=== PATIENT | male | born 1965 | race American Indian/Alaskan Native ===

== ENCOUNTER 2019-09-27 02:47 | Emergency (ER) | payer MEDICARE ==
[2019-09-27 03:59] LABS: Basophils # (Auto) 0.1 K/mm3 (0.0-0.1); Basophils % (Auto) 1.1 % (0.0-1.8); Eosinophils # (Auto) 0.2 K/mm3 (0.0-0.4); Eosinophils % (Auto) 2.2 % (0.0-4.3); Hematocrit 28.2 % (35.5-45.6); Hemoglobin 8.8 gm/dl (11.8-15.2); Lymphocytes # (Auto) 1.1 K/mm3 (1.2-5.4); Lymphocytes % (Auto) 11.7 % (13.4-35.0); Mean Corpuscular HGB Conc 31 % (32-34); Mean Corpuscular Volume 89 fl (84-94); Monocytes # (Auto) 0.6 K/mm3 (0.0-0.8); Monocytes % (Auto) 6.2 % (0.0-7.3); Platelet Count 380 K/mm3 (140-440); Red Blood Count 3.16 M/mm3 (3.65-5.03); Red Cell Distribution Width 15.8 % (13.2-15.2)
--- NOTE | 2019-09-27 04:03 | Emergency Department Report ---
<BERKLEY GALVEZ - Last Filed: 09/27/19 06:07> ED General Adult HPI - General Chief complaint: Hypoglycemia Stated complaint: LOW SUGAR Time Seen by Provider: 09/27/19 03:43 Source: EMS Mode of arrival: Stretcher Limitations: Altered Mental Status - History of Present Illness Initial comments: 53-year-old male with multiple medical problems who is a custodial resident presents with complaint of being found on the floor at custodial. Patient had a blood glucose which was 45 and was given 2 injections of glucagon. Linsey ent also had D5 hung by EMS. Patient complains of headache. Patient is on Tuesday dialysis. Patient denies any blood in his stool or any hematemesis. Patient denies any chest pain or shortness of breath. Patient states that he may have passed out as well. - Related Data Allergies Allergy/AdvReac Type Severity Reaction Status Date / Time No Known Allergies Allergy Verified 09/27/19 03:07 ED Review of Systems Constitutional: denies: chills, fever Eyes: denies: eye pain, eye discharge, vision change ENT: denies: ear pain, throat pain Respiratory: denies: cough, shortness of breath, wheezing Cardiovascular: denies: chest pain, palpitations Endocrine: no symptoms reported Gastrointestinal: denies: abdominal pain, nausea, diarrhea Genitourinary: denies: urgency, dysuria Musculoskeletal: denies: back pain, joint swelling, arthralgia Skin: denies: rash, lesions Neurological: weakness Psychiatric: denies: anxiety, depression Hematological/Lymphatic: denies: easy bleeding, easy bruising ED Past Medical Hx - Past Medical History Previous Medical History?: Yes Hx Hypertension: Yes Hx CVA: No Hx Heart Attack/AMI: No Hx Congestive Heart Failure: Yes Hx Diabetes: Yes Hx Deep Vein Thrombosis: No Hx Pulmonary Embolism: No Hx GERD: Yes Hx Liver Disease: No Hx Renal Disease: Yes (ESRD on HD 08/18/13) Hx Sickle Cell Disease: No Hx Arthritis: No Hx Headaches / Migraines: No Hx Seizures: No Hx Kidney Stones: No Hx Psychiatric Treatment: No Hx Asthma: No Hx COPD: Yes Hx Tuberculosis: No Hx Dementia: No Hx HIV: No - Surgical History Past Surgical History?: Yes Additional Surgical History: Dialysis access to LUE. Keira BKA - Social History Smoking Status: Never Smoker Substance Use Type: None ED Physical Exam - General Limitations: Altered Mental Status General appearance: alert, other (uncomfortable) - Head Head exam: Present: atraumatic, normocephalic - Eye Eye exam: Present: normal appearance - ENT ENT exam: Present: mucous membranes moist - Neck Neck exam: Present: normal inspection, other (mild tenderness in c4 region) - Respiratory Respiratory exam: Present: normal lung sounds bilaterally. Absent: respiratory distress - Cardiovascular Cardiovascular Exam: Present: regular rate, normal rhythm. Absent: systolic murmur, diastolic murmur, rubs, gallop - GI/Abdominal GI/Abdominal exam: Present: soft, normal bowel sounds - Rectal Rectal exam: Present: heme (-) stool, other (brown stool) - Extremities Exam Extremities exam: Present: normal inspection, other (left BKA ) - Back Exam Back exam: Present: normal inspection - Neurological Exam Neurological exam: Present: alert, oriented X3 - Psychiatric Psychiatric exam: Present: normal affect, normal mood - Skin Skin exam: Present: warm, dry, intact, normal color. Absent: rash ED Medical Decision Making - Lab Data Result diagrams: 09/27/19 03:36 09/27/19 03:36 - Medical Decision Making Patient had received 2 injections of glucagon as well as D5 through IV fluids patient's blood glucose had initially increased but now has downgraded again to 61. Radiology discussed the case with me and has some concerns that there may be an acute injury to the C-spine but also states that this may be chronic and the thought is that this needs further evaluation with MRI. Patient still pending an MRI. Patient case discussed with the hospitalist as the patient will still need to be admitted with this recurrent hypoglycemia. Patient has an anemia present with a hemoglobin of 8.8 however his guaiac exam is negative. - Differential Diagnosis Dehydration; Electrolyte Abnormality; Intracranial Bleed ED Disposition Clinical Impression: Hypoglycemia, ESRD (end stage renal disease), Discitis of cervical region Disposition: DC/TX-70 ANOTHER TYPE HLTHCARE Condition: Critical <LEIGH FAUSTIN - Last Filed: 09/27/19 15:23> ED Course - Reevaluation(s) Reevaluation #1: 09/27/19 09:29 repeat glucose less than 40. 2 amps of d50 ordered. q hourly accu-check requested 09/27/19 09:57 mri images reviewed. 09/27/19 10:11 blood cultures ordered given discitis vs osteo reading. 09/27/19 13:00 pt continues to have recurrent hypoglycemia requiring repeated d50 doses. 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 - Consultations Consultation #1: 09/27/19 09:57 Dr Padilla with ortho called. he is currently in the OR and will call back. Dispo pending consultation 09/27/19 10:09 Dr Padilla responded. stating he does not perform c spine surgery and there isn't any neurosurgical coverage available. I will contact manasa 09/27/19 10:18 manasa called, med surg saturation. trauma md did not speak to me since likely medical admission. awaiting call back from DR Goodman neurosurgeon. 09/27/19 10:49 case d/w Dr Swann neurosurgeon, pt does not need neurosurgeon at this time. rec hospitalist to admit and he can consult, awaiting hosptialist callback Dr Avalos called to check on pt. provided an update regarding diagnosis and transfer attempt. 09/27/19 11:16 awaiting [place] hospitalist call back but they are on saturation and rec trying other facilities. 09/27/19 11:58 call placed to [facility] awaiting Dr Spivey spine surgeon call back. 09/27/19 12:35 case d/w dR Turcios as well as with [facility] was willing to accept patient pending spinal physician approval . Still awaiting spine surgeon call 09/27/19 13:20 received call back from [facility], pt accepted at this time after consultation with Dr Larios 09/27/19 14:03 recieved call back form [facility] that since pt is needing q 1hr accuchecks, he will need ICU admission. they do not have any icu beds but pt will be placed on list for one. also if pt glucose stabilizes we can call back for a floor bed again. I will need to sign out this plan to oncoming provider Dr jaime ED Medical Decision Making - Lab Data Result diagrams: 09/27/19 03:36 09/27/19 03:36 Lab Results 09/27/19 09/27/19 09/27/19 Range/Units 03:21 03:36 03:36 WBC 9.6 (4.5-11.0) K/mm3 RBC 3.16 L (3.65-5.03) M/mm3 Hgb 8.8 L (11.8-15.2) gm/dl Hct 28.2 L (35.5-45.6) % MCV 89 (84-94) fl MCH 28 (28-32) pg MCHC 31 L (32-34) % RDW 15.8 H (13.2-15.2) % Plt Count 380 (140-440) K/mm3 Lymph % (Auto) 11.7 L (13.4-35.0) % Ulster % (Auto) 6.2 (0.0-7.3) % Eos % (Auto) 2.2 (0.0-4.3) % Baso % (Auto) 1.1 (0.0-1.8) % Lymph # 1.1 L (1.2-5.4) K/mm3 Ulster # 0.6 (0.0-0.8) K/mm3 Eos # 0.2 (0.0-0.4) K/mm3 Baso # 0.1 (0.0-0.1) K/mm3 Seg Neutrophils % 78.8 H (40.0-70.0) % Seg Neutrophils # 7.6 (1.8-7.7) K/mm3 Sodium 145 (137-145) mmol/L Potassium 4.5 (3.6-5.0) mmol/L Chloride 103.8 (98-107) mmol/L Carbon Dioxide 25 (22-30) mmol/L Anion Gap 21 mmol/L BUN 41 H (9-20) mg/dL Creatinine 7.6 H (0.8-1.5) mg/dL Estimated GFR 9 ml/min BUN/Creatinine Ratio 5 % Glucose 83 (75-100) mg/dL POC Glucose 107 H (70-105) Calcium 8.8 (8.4-10.2) mg/dL Total Bilirubin 0.20 (0.1-1.2) mg/dL AST 18 (5-40) units/L ALT 18 (7-56) units/L Alkaline Phosphatase 95 (35-129) units/L Total Protein 7.8 (6.3-8.2) g/dL Albumin 3.2 L (3.9-5) g/dL Albumin/Globulin Ratio 0.7 % 09/27/19 09/27/19 09/27/19 Range/Units 05:20 06:29 09:37 WBC (4.5-11.0) K/mm3 RBC (3.65-5.03) M/mm3 Hgb (11.8-15.2) gm/dl Hct (35.5-45.6) % MCV (84-94) fl MCH (28-32) pg MCHC (32-34) % RDW (13.2-15.2) % Plt Count (140-440) K/mm3 Lymph % (Auto) (13.4-35.0) % Ulster % (Auto) (0.0-7.3) % Eos % (Auto) (0.0-4.3) % Baso % (Auto) (0.0-1.8) % Lymph # (1.2-5.4) K/mm3 Ulster # (0.0-0.8) K/mm3 Eos # (0.0-0.4) K/mm3 Baso # (0.0-0.1) K/mm3 Seg Neutrophils % (40.0-70.0) % Seg Neutrophils # (1.8-7.7) K/mm3 Sodium (137-145) mmol/L Potassium (3.6-5.0) mmol/L Chloride (98-107) mmol/L Carbon Dioxide (22-30) mmol/L Anion Gap mmol/L BUN (9-20) mg/dL Creatinine (0.8-1.5) mg/dL Estimated GFR ml/min BUN/Creatinine Ratio % Glucose (75-100) mg/dL POC Glucose 65 L 107 H < 40 L (70-105) Calcium (8.4-10.2) mg/dL Total Bilirubin (0.1-1.2) mg/dL AST (5-40) units/L ALT (7-56) units/L Alkaline Phosphatase (35-129) units/L Total Protein (6.3-8.2) g/dL Albumin (3.9-5) g/dL Albumin/Globulin Ratio % 09/27/19 09/27/19 09/27/19 Range/Units 10:29 11:52 12:47 WBC (4.5-11.0) K/mm3 RBC (3.65-5.03) M/mm3 Hgb (11.8-15.2) gm/dl Hct (35.5-45.6) % MCV (84-94) fl MCH (28-32) pg MCHC (32-34) % RDW (13.2-15.2) % Plt Count (140-440) K/mm3 Lymph % (Auto) (13.4-35.0) % Ulster % (Auto) (0.0-7.3) % Eos % (Auto) (0.0-4.3) % Baso % (Auto) (0.0-1.8) % Lymph # (1.2-5.4) K/mm3 Ulster # (0.0-0.8) K/mm3 Eos # (0.0-0.4) K/mm3 Baso # (0.0-0.1) K/mm3 Seg Neutrophils % (40.0-70.0) % Seg Neutrophils # (1.8-7.7) K/mm3 Sodium (137-145) mmol/L Potassium (3.6-5.0) mmol/L Chloride (98-107) mmol/L Carbon Dioxide (22-30) mmol/L Anion Gap mmol/L BUN (9-20) mg/dL Creatinine (0.8-1.5) mg/dL Estimated GFR ml/min BUN/Creatinine Ratio % Glucose (75-100) mg/dL POC Glucose 203 H 85 55 L (70-105) Calcium (8.4-10.2) mg/dL Total Bilirubin (0.1-1.2) mg/dL AST (5-40) units/L ALT (7-56) units/L Alkaline Phosphatase (35-129) units/L Total Protein (6.3-8.2) g/dL Albumin (3.9-5) g/dL Albumin/Globulin Ratio % 09/27/ Range/Units 13:47 WBC (4.5-11.0) K/mm3 RBC (3.65-5.03) M/mm3 Hgb (11.8-15.2) gm/dl Hct (35.5-45.6) % MCV (84-94) fl MCH (28-32) pg MCHC (32-34) % RDW (13.2-15.2) % Plt Count (140-440) K/mm3 Lymph % (Auto) (13.4-35.0) % Ulster % (Auto) (0.0-7.3) % Eos % (Auto) (0.0-4.3) % Baso % (Auto) (0.0-1.8) % Lymph # (1.2-5.4) K/mm3 Ulster # (0.0-0.8) K/mm3 Eos # (0.0-0.4) K/mm3 Baso # (0.0-0.1) K/mm3 Seg Neutrophils % (40.0-70.0) % Seg Neutrophils # (1.8-7.7) K/mm3 Sodium (137-145) mmol/L Potassium (3.6-5.0) mmol/L Chloride (98-107) mmol/L Carbon Dioxide (22-30) mmol/L Anion Gap mmol/L BUN (9-20) mg/dL Creatinine (0.8-1.5) mg/dL Estimated GFR ml/min BUN/Creatinine Ratio % Glucose (75-100) mg/dL POC Glucose 132 H (70-105) Calcium (8.4-10.2) mg/dL Total Bilirubin (0.1-1.2) mg/dL AST (5-40) units/L ALT (7-56) units/L Alkaline Phosphatase (35-129) units/L Total Protein (6.3-8.2) g/dL Albumin (3.9-5) g/dL Albumin/Globulin Ratio % - Radiology Data Radiology results: report reviewed CT head/brain wo con INDICATION / CLINICAL INFORMATION: fall. TECHNIQUE: Axial CT imaging of the brain was obtained without contrast. Coronal and sagittal reformatted imaging obtained and reviewed. All CT scans at this location are performed using CT dose reduction for ALARA by means of automated exposure control. COMPARISON: Prior head CT, 09/09/2019 FINDINGS: No intracranial mass, hemorrhage, or midline shift is noted. There is old infarct in the right temporal region and insula again noted not appreciably changed. No acute infarct noted on today's exam. The ventricular system and basilar cisterns are unremark able. Mild/moderate cerebral atrophy noted. Paranasal sinuses are grossly well aerated and clear. No calvarial fracture noted. IMPRESSION: 1. No acute intracranial abnormality. 2. 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 CT cervical spine wo con INDICATION / CLINICAL INFORMATION: neck pain. Patient fell TECHNIQUE: Axial CT imaging of the cervical spine was obtained without contrast. Coronal and sagittal reformatted imaging obtained and reviewed. All CT scans at this location are performed using CT dose reduction for ALARA by means of automated exposure control. COMPARISON: None available. FINDINGS: The cervical spine is markedly abnormal. C1-C2 alignment is maintained. No fracture of C1-C2 is noted.There is significant left lateral rotary subluxation of C2 with respect to C3. C3-There is compression type deformity of the C3 vertebral body with horizontal lucency through the vertebral body. There is slight retropulsion of the inferior fracture fragment and slight anterior extrusion of additional fracture fragment. There is significant loss of vertebral body height. There is slight lateral displacement of fracture fragments to the left as well. The overall appearance is more suggestive of chronic fracture posttraumatic deformity but it would be difficult to exclude acute fracture given the appearance. C4 and C5 demonstrate complete osseous fusion. There is significant degenerative disc disease at C5-C6. IMPRESSION: 1. Marked deformity of C3 vertebral body with evidence of multiple fracture fragments and slight retropulsion . I suspect this is old posttraumatic deformity. However, it would be difficult to exclude an acute cervical spine fracture component. I am told there is no known history of cervical spine trauma. 2. There is significant left lateral rotary subluxation of C2 on C3. 3. Complete osseous fusion of C4-C5. 4. MRI is strongly suggested as it would be very difficult to exclude acute fracture of the cervical spine in this patient, especially without any known history of cervical injury. 5. This case was discussed with Dr. 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 Blood cultures taken given the findings of dis citis/osteomyelitis on MRI. Patient does not have any gross neurologic findings. Patient is in a c-collar. No signs of sepsis at this time. Patient is a dialysis patient and is due for dialysis today however, no signs of Lyme overload or hyperkalemia. Patient has been accepted to [facility] to be admitted to the hospitalist service with neurosurgical coverage. Critical Care Time: Yes Critical care time in (mins) excluding proc time.: 35 ED Disposition Is pt being admited?: No Does the pt Need Aspirin: No Time of Disposition: 13:54 (pt accepted to [facility]) <МАРИНА MATHEWS III - Last Filed: 09/27/19 17:28> ED Review of Systems ROS: Stated complaint: LOW SUGAR Other details as noted in HPI ED Physical Exam - General Limitations: No Limitations General appearance: alert, in no apparent distress - Head Head exam: Present: atraumatic, normocephalic - Eye Eye exam: Present: normal appearance, PERRL Pupils: Present: normal accommodation - ENT ENT exam: Present: mucous membranes moist - Neck Neck exam: Present: normal inspection - Respiratory Respiratory exam: Present: normal lung sounds bilaterally. Absent: respiratory distress - Cardiovascular Cardiovascular Exam: Present: regular rate, normal rhythm. Absent: systolic murmur, diastolic murmur, rubs, gallop - GI/Abdominal GI/Abdominal exam: Present: soft, normal bowel sounds - Rectal Rectal exam: Present: deferred - Extremities Exam Extremities exam: Present: full ROM, other (right below the knee amputation. Full range of motion with lower extremities. Full range of motion with upper extremities). Absent: tenderness - Back Exam Back exam: Present: normal inspection, full ROM - Neurological Exam Neurological exam: Present: alert, oriented X3 - Expanded Neurological Exam Expanded Patient oriented to: Present: person, place, time Speech: Present: fluid speech Motor strength exam: RUE: 5, LUE: 5, RLE: 5, LLE: 5 Best Eye Response ([place]): (4) open spontaneously Best Motor Response (Espinoza): (6) obeys commands Best Verbal Response ([place]): (5) oriented Espinoza Total: 15 - Psychiatric Psychiatric exam: Present: normal affect, normal mood - Skin Skin exam: Present: warm, dry, intact, normal color. Absent: rash ED Course Vital Signs 09/27/19 09/27/19 09/27/19 03:04 03:07 03:15 Temperature 97.0 F L Pulse Rate 76 81 74 Respiratory 13 16 12 Rate Blood Pressure Blood Pressure 144/74 [Left] O2 Sat by Pulse 98 99 98 Oximetry 09/27/19 09/27/19 09/27/19 03:30 03:45 04:25 Temperature Pulse Rate 75 74 75 Respiratory 11 L 11 L 10 L Rate Blood Pressure 147/89 151/87 154/88 Blood Pressure [Left] O2 Sat by Pulse 99 99 100 Oximetry 09/27/19 09/27/19 09/27/19 04:30 04:45 05:00 Temperature Pulse Rate 73 74 71 Respiratory 10 L 11 L 12 Rate Blood Pressure 144/88 144/88 130/81 Blood Pressure [Left] O2 Sat by Pulse 100 100 98 Oximetry 09/27/19 09/27/19 09/27/19 05:15 05:30 05:45 Temperature Pulse Rate 73 73 73 Respiratory 12 11 L 13 Rate Blood Pressure 130/81 155/87 161/93 Blood Pressure [Left] O2 Sat by Pulse 99 100 100 Oximetry 09/27/19 09/27/19 09/27/19 06:00 06:15 06:30 Temperature Pulse Rate 75 75 73 Respiratory 11 L 14 10 L Rate Blood Pressure 162/86 147/85 142/78 Blood Pressure [Left] O2 Sat by Pulse 100 100 100 Oximetry 09/27/19 09/27/19 09/27/19 06:45 09:57 12:51 Temperature Pulse Rate 74 71 74 Respiratory 11 L 12 12 Rate Blood Pressure 141/77 Blood Pressure 131/71 133/68 [Left] O2 Sat by Pulse 100 100 Oximetry 09/27/19 15:57 Temperature Pulse Rate 78 Respiratory 15 Rate Blood Pressure Blood Pressure 153/84 [Left] O2 Sat by Pulse 100 Oximetry - Reevaluation(s) Reevaluation #2: Patient signed out to me from Dr. Rojas to monitor the patient's blood sugars. Patient is awaiting transport to [facility] main [place]. Patient has been accepted but since his glucose is fluctuating we are waiting on an ICU bed. But [facility] states that once the blood sugar stabilizes the patient go to a floor bed. 09/27/19 15:23 Reevaluation #3: Patient's blood sugar has stabilized. Patient tolerating by mouth intake. Patient has not had another hypoglycemic episode. [facility] updated with information. 09/27/19 17:24 ED Medical Decision Making - Lab Data Result diagrams: 09/27/19 03:36 09/27/19 03:36 Critical Care Time: Yes Critical care time in (mins) excluding proc time.: 80 Critical care attestation.: If time is entered above; I have spent that time in minutes in the direct care of this critically ill patient, excluding procedure time. Critical Care Time: 80 minutes ED Disposition Is pt being admited?: No Does the pt Need Aspirin: No
[2019-09-27 04:12] LABS: Albumin 3.2 g/dL (3.9-5); Calcium 8.8 mg/dL (8.4-10.2)
--- NOTE | 2019-09-27 04:50 | Cat Scan Report ---
CT head/brain wo con INDICATION / CLINICAL INFORMATION: fall. TECHNIQUE: Axial CT imaging of the brain was obtained without contrast. Coronal and sagittal reformatted imaging obtained and reviewed. All CT scans at this location are performed using CT dose reduction for ALAR A by means of automated exposure control. COMPARISON: Prior head CT, 09/09/2019 FINDINGS: No intracranial mass, hemorrhage, or midline shift is noted. There is old infarct in the right tempor al region and insula again noted not appreciably changed. No acute infarct noted on today's exam. Th e ventricular system and basilar cisterns are unremarkable. Mild/moderate cerebral atrophy noted. Paranasal sinuses are grossly well aerated and clear. No calvarial fracture noted. IMPRESSION: 1. No acute intracranial abnormality. 2. 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 Signer Name: Leann Flores MD Signed: 09/27/2019 4:45 AM Workstation Name: [id number]
--- NOTE | 2019-09-27 05:47 | Cat Scan Report ---
CT cervical spine wo con INDICATION / CLINICAL INFORMATION: neck pain. Patient fell TECHNIQUE: Axial CT imaging of the cervical spine was obtained without contrast. Coronal and sagittal reformatte d imaging obtained and reviewed. All CT scans at this location are performed using CT dose reduction for ALARA by means of automated exposure control. COMPARISON: None available. FINDINGS: The cervical spine is markedly abnormal. C1-C2 alignment is maintained. No fracture of C1-C2 is noted.There is significant left lateral rotary subluxation of C2 with respect to C3. C3-There is compression type deformity of the C3 vertebral body with horizontal lucency through the v ertebral body. There is slight retropulsion of the inferior fracture fragment and slight anterior ext rusion of additional fracture fragment. There is significant loss of vertebral body height. There is slight lateral displacement of fracture fragments to the left as well. The overall appearance is more suggestive of chronic fracture posttraumatic deformity but it would be difficult to exclude acute fr acture given the appearance. C4 and C5 demonstrate complete osseous fusion. There is significant degenerative disc disease at C5-C6. IMPRESSION: 1. Marked deformity of C3 vertebral body with evidence of multiple fracture fragments and slight retr opulsion . I suspect this is old posttraumatic deformity. However, it would be difficult to exclude a n acute cervical spine fracture component. I am told there is no known history of cervical spine trau ma. 2. There is significant left lateral rotary subluxation of C2 on C3. 3. Complete osseous fusion of C4-C5. 4. MRI is strongly suggested as it would be very difficult to exclude acute fracture of the cervical spine in this patient, especially without any known history of cervical injury. 5. This case was discussed with Dr. 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
[2019-09-27] MEDS ORDERED: HYDROmorphone 1 MG/1 ML INJ IV ONE ×2 (07:20→12:36)
[2019-09-27] MEDS ORDERED: ONDANSETRON 4 MG/2 ML INJ IV ONE (07:20)
[2019-09-27] MEDS ORDERED: DEXTROSE 50% IN WATER (25GM) 50 ML VIAL IV ONE (09:29)
[2019-09-27] MEDS ORDERED: DEXTROSE 50% IN WATER (25GM) 50 ML SYRINGE IV ONE ×3 (09:30→12:39)
--- NOTE | 2019-09-27 09:33 | Magnetic Resonance Report ---
MRI CERVICAL SPINE WITHOUT CONTRAST INDICATION / CLINICAL INFORMATION: neck pain. TECHNIQUE: Multisequence, multiplanar images of the cervical spine were obtained. COMPARISON: The study is compared to the earlier CT cervical spine of 09/27/2019. FINDINGS: The findings correlate with the earlier CT demonstrating marked erosive changes involving the C3 and C4 vertebral bodies, greater on the left. Additionally, there is increase STIR signal within the irre gular disc space at C3-4. Furthermore, there is prominent prevertebral soft tissue edema extending f rom C1 to T1 measuring 8-9 mm in greatest AP dimension at C3-4. The constellation of findings would b e concerning for discitis and associated osteomyelitis. Edema extends into the left pedicles and harish cular facets at the these levels. Correlation would also be needed regarding superimposed traumatic p rocess given the history.. CRANIOCERVICAL JUNCTION:No significant abnormality. ALIGNMENT: There is moderate to curvature of the upper cervical spine, convex toward the right. VERTEBRAE:There is anterior fusion or ankylosis at C5-6 with mild residual anterolisthesis. There are moderate to degenerative endplate changes at C6-7. VISUALIZED SPINAL CORD: The bony retropulsion and ligamentum flavum hypertrophy at C3-4 result in spi nal stenosis with mild deformity of the cord. However, the cervical spinal cord appears to demonstrat e appropriate signal intensity on the current exam. [id number] ANALYSIS: C2-3: The broad-based disc bulge at this level contributes to the degree of stenosis given the marked compression at C3 and C4. Additionally, there is mild to moderate left neural foraminal narrowing. C3-4: There is marked compression and erosive changes at this level as detailed above. Again, the spo ndylosis and retropulsion as well as the ligamentum flavum hypertrophy result in spinal stenosis with mild to moderate circumferential deformity of the cord. There is also notable effacement of the late ral recesses with marked left and moderate right neural foraminal narrowing, C4-5: The disc bulge effaces the ventral subarachnoid space without direct cord compression. There is moderate to right neural foraminal narrowing. C5-6: Again I, there is anterior fusion at this level with mild residual anterolisthesis. The spondyl osis effaces the ventral subarachnoid space without direct cord compression. There is mild left neura l foraminal narrowing C6-7: The spondylosis slightly flattens the ventral cord at. There is moderate to marked right and mo derate left neural foraminal narrowing. C7-T1: There is a slight disc bulge without significant stenosis. PARASPINAL SOFT TISSUES: There is prominent edema involving the prevertebral soft tissues as describe d above. ADDITIONAL FINDINGS: The posterior spondylosis at T2-3 effaces the ventral subarachnoid space with mi nimal flattening of the ventral cord. IMPRESSION: 1. There is marked compression and erosive changes at C3-4 which correlate with the earlier CT. Furth ermore, there is notable increased signal within the disc space as well as prominent prevertebral sof t tissue edema in the consultation findings would be concerning for discitis and osteomyelitis. 2. The retropulsion and ligamentum flavum hypertrophy at C3-4 results in spinal stenosis with mild to moderate circumferential deformity of the cord.. Additionally, there is marked left neural foraminal narrowing. 3. There is anterior fusion at C5-6 with mild residual anterolisthesis. 4. The spondylosis at C6-7 minimally flattens the ventral cord. There is moderate to marked right and moderate left neural foraminal narrowing. Signer Name: Jackson Siddiqi MD Signed: 09/27/2019 9:28 AM Workstation Name: [id number]
[2019-09-27] MEDS ORDERED: ACETAMINOPHEN 325 MG TAB PO ONE (15:49)
[2019-09-27] MEDS ORDERED: ACETAMINOPHEN 325 MG TAB ONE (15:53)
[2019-09-27 19:39] VITALS: BP 147/83
== END 2019-09-27 19:45 | disposition other institution (70) ==
LOC: ED 02:47
DX: E11.649 Type 2 diabetes mellitus with hypoglycemia without coma (principal); I13.2 Hypertensive heart and chronic kidney disease with heart failure and with stage 5 chronic kidney disease, or end stage renal disease; I50.9 Heart failure, unspecified; E11.22 Type 2 diabetes mellitus with diabetic chronic kidney disease; N18.6 End stage renal disease; Z99.2 Dependence on renal dialysis; K21.9 Gastro-esophageal reflux disease without esophagitis; M46.42 Discitis, unspecified, cervical region; J44.9 Chronic obstructive pulmonary disease, unspecified; Z89.511 Acquired absence of right leg below knee
CPT/HCPCS: 36415; 70450; 72125; 72141; 80053; 82962; 85025; 87040; 96374; 96375; 96376; 99291; 99292; J1170; J2405

== ENCOUNTER 2019-11-24 15:36 | Inpatient (IN) | payer MEDICARE ==
--- NOTE | 2019-11-24 15:56 | Progress Note ---
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
--- NOTE | 2019-11-24 16:01 | Consultation ---
History of Present Illness History of present illness: [facility] Date of Service:11/24/2019 15:41:57 Impression: RO Acute Ischemic Stroke Comments: 54-year-old male with history of seizure disorder, end-stage renal disease on hemodialysis with getting hemodialysis treatment when he completed the treatment he lost consciousness. He has regained consciousness but continues to be confused. This could be an episode of seizure versus dialysis disequilibrium syndrome, need to rule out stroke. Metrics: Last Known Well: 11/24/2019 15:25:00 [facility] Notification Time: 11/24/2019 15:41:57 Arrival Time: 11/24/2019 15:36:00 Stamp Time: 11/24/2019 15:41:57 Time First Login Attempt: 11/24/2019 15:43:29 Video Start Time: 11/24/2019 15:43:29 Symptoms: unresponsive NIHSS Start Assessment Time: 11/24/2019 15:50:00 Patient is not a candidate for tPA. Patient was not deemed candidate for tPA thrombolytics because of No focal findings. Encephalopathy/seizure favored over stroke. unable to verify LKW or go through contraindications. unknown Baseline.. Video End Time: 11/24/2019 15:58:31 CT head showed no acute hemorrhage or acute core infarct. Advanced imaging CTA head and neck obtained. Radiologist was not called back for review of advanced imaging because pending ER Physician notified of the decision on thrombolytics management on 11/24/2019 15:55:10 Our recommendations are outlined below. Recommendations: Activate Stroke Protocol Admission/Order Set Stroke/Telemetry Floor Neuro Checks Bedside Swallow Eval DVT Prophylaxis IV Fluids, Normal Saline Head of Bed Below 30 Degrees Euglycemia and Avoid Hyperthermia (PRN Acetaminophen) Recommended Scan: MRI Head Lipid Panel to Be Obtained, if Not Done in the Last Three Months Therapies: Physical Therapy, Occupational Therapy, Speech Therapy Assessment When Applicable Dysphaghia Screen: Swallow Evaluation, Bedside NPO Until Swallow Evaluation Disposition: Follow up with Teleneurology Follow up Sign Out: Discussed with Emergency Department Provider History of Present Illness: Patient is a 54 year old Male. Patient was brought by EMS for symptoms of unresponsive 54 YO M with h/o seizure disorder, ESRD on HD, DM and HTN who was at HD when he finished dialysis, he became unresponsive. Now he has regained consciousness but is confused. Unknown baseline. CT head showed no acute hemorrhage or acute core infarct. Examination: 1A: Level of Consciousness - Alert; keenly responsive+ 0 1B: Ask Month and Age - Could Not Answer Either Question Correctly+ 2 1C: Blink Eyes & Squeeze Hands - Performs 0 Tasks+ 2 2: Test Horizontal Extraocular Movements - Normal+ 0 3: Test Visual Gagnon - No Visual Loss+ 0 4: Test Facial Palsy (Use Grimace if Obtunded) - Normal symmetry+ 0 5A: Test Left Arm Motor Drift - Drift, but doesn't hit bed+ 1 5B: Test Right Arm Motor Drift - Drift, but doesn't hit bed+ 1 6A: Test Left Leg Motor Drift - Some Effort Against [place]+ 2 6B: Test Right Leg Motor Drift - Amputation/Joint Fusion+ 0 7: Test Limb Ataxia (FNF/Heel-Ying) - No Ataxia+ 0 8: Test Sensation - Normal; No sensory loss+ 0 9: Test Language/Aphasia - Severe Aphasia: Fragmentary Expression, Inference Needed, Cannot Identify Materials+ 2 10: Test Dysarthria - Mild-Moderate Dysarthria: Slurring but can be understood+ 1 11: Test Extinction/Inattention - No abnormality+ 0 NIHSS Score:11 Patient was informed the Neurology Consult would happen via TeleHealth consult by way of interactive audio and video telecommunications and consented to receiving care in this manner. Due to the immediate potential for life-threatening deterioration due to underlying acute neurologic illness, I spent 35 minutes providing critical care. This time includes time for face to face visit via telemedicine, review of medical records, imaging studies and discussion of findings with providers, the patient and/or family. Dr Sayra Ludwig [facility] Case [id number] Medications and Allergies Allergies Allergy/AdvReac Type Severity Reaction Status Date / Time No Known Allergies Allergy Verified 09/27/19 03:07
--- NOTE | 2019-11-24 16:03 | Emergency Department Report ---
ED Neuro Deficit HPI - General Stated Complaint: AMS Time Seen by Provider: 11/24/19 15:52 Source: EMS - History of Present Illness Initial Comments: Patient is 54 years old male with history of end-stage renal disease on hemodial ysis, hypertension and congestive heart failure and right below-knee amputation.. Patient brought to the emergency room via EMS from dialysis center. EMS stated that patient became confused with decreased responsiveness after he finishes dialysis. Patient had history of stroke and seizure before however dialysis staff stated that there is no seizure activity. Stroke protocol immediately initiated and stroke telemetry neurology examining the patient who video conference. -: Sudden Presenting Symptoms: Present: Unable to Speak Clearly, Altered Mental Status History of same: Yes Place: other (dialysis Center) - Related Data Home Medications: Home Medications Medication Instructions Recorded Confirmed Last Taken Metoprolol Tartrate 75 mg PO BID 11/24/19 11/24/19 Unknown Sevelamer Carbonate [Renvela] 800 mg PO TIDWM 11/24/19 11/24/19 Unknown Warfarin [Coumadin] 1 mg PO QHS 11/24/19 11/24/19 Unknown amLODIPine [Norvasc] 10 mg PO DAILY 11/24/19 11/24/19 Unknown Allergies/Adverse Reactions: Allergies Allergy/AdvReac Type Severity Reaction Status Date / Time No Known Allergies Allergy Verified 09/27/19 03:07 ED Review of Systems ROS: Stated complaint: AMS Other details as noted in HPI Comment: All other systems reviewed and negative ED Past Medical Hx - Past Medical History Hx Hypertension: Yes Hx CVA: No Hx Heart Attack/AMI: No Hx Congestive Heart Failure: Yes Hx Diabetes: Yes Hx Deep Vein Thrombosis: No Hx Pulmonary Embolism: No Hx GERD: Yes Hx Liver Disease: No Hx Renal Disease: Yes (ESRD on HD 08/18/13) Hx Sickle Cell Disease: No Hx Arthritis: No Hx Headaches / Migraines: No Hx Seizures: No Hx Kidney Stones: No Hx Psychiatric Treatment: No Hx Asthma: No Hx COPD: Yes Hx Tuberculosis: No Hx Dementia: No Hx HIV: No - Surgical History Additional Surgical History: Dialysis access to LUE. R BKA - Social History Smoking Status: Never Smoker Substance Use Type: None - Medications Home Medications: Home Medications Medication Instructions Recorded Confirmed Last Taken Type Metoprolol Tartrate 75 mg PO BID 11/24/19 11/24/19 Unknown History Sevelamer Carbonate [Renvela] 800 mg PO TIDWM 11/24/19 11/24/19 Unknown History Warfarin [Coumadin] 1 mg PO QHS 11/24/19 11/24/19 Unknown History amLODIPine [Norvasc] 10 mg PO DAILY 11/24/19 11/24/19 Unknown History ED Neuro Physical Exam - General General appearance: alert, in no apparent distress Suspected Stroke: Yes - Head Head exam: Present: atraumatic, normocephalic, normal inspection - Eye Eye exam: Present: normal appearance - ENT ENT exam: Present: normal exam, normal orophraynx, mucous membranes moist - Neck Neck exam: Present: normal inspection, full ROM. Absent: tenderness, me ningismus, lymphadenopathy, thyromegaly - Respiratory Respiratory exam: Present: normal lung sounds bilaterally - Cardiovascular Cardiovascular Exam: Present: regular rate, normal rhythm, normal heart sounds - GI/Abdominal GI/Abdominal exam: Present: soft, normal bowel sounds. Absent: distended, tenderness, guarding, rebound, rigid - Neurological Exam Neurological exam: Present: alert, altered - NIHSS Assessment Interval: Baseline 1a. Level of Consciousness: alert/keenly responsive 1b. LOC Questions: answers no questions correctly 1c. LOC Commands: performs no tasks correctly 2. Best Gaze: normal 3. Visual: no visual loss 4. Facial Palsy: normal symmetrical movement 5b. Motor Arm Right: drift 5a. Motor Arm Left: drift 6a. Motor Leg Left: drift 6b. Motor Leg Right: amputation/joint fusion 7. Limb Ataxia: absent 8. Sensory: normal 9. Best Language: mild/moderate aphasia 10. Dysarthria: mild/moderate dysarthria 11. Extinction/Inattention: no abnormality Total Score: 9 Stroke Severity: Moderate Stroke - Psychiatric Psychiatric exam: Present: normal mood - Skin Skin exam: Present: warm, intact, normal color ED Course Vital Signs 11/24/19 11/24/19 11/24/19 16:14 16:24 16:25 Temperature Pulse Rate 95 H 95 H Respiratory 21 21 Rate Blood Pressure Blood Pressure 198/112 [Right] O2 Sat by Pulse 100 99 Oximetry 11/24/19 11/24/19 11/24/19 17:00 18:43 18:53 Temperature Pulse Rate 93 H 93 H 94 H Respiratory 13 Rate Blood Pressure Blood Pressure 189/104 [Right] O2 Sat by Pulse 100 100 100 Oximetry 11/24/19 11/24/19 11/24/19 18:55 19:00 20:00 Temperature 98.8 F Pulse Rate 94 H 93 H Respiratory 14 14 Rate Blood Pressure 197/109 196/106 Blood Pressure [Right] O2 Sat by Pulse 98 97 Oximetry 11/24/19 11/24/19 11/24/19 21:00 21:25 22:00 Temperature Pulse Rate 94 H 90 94 H Respiratory 15 12 12 Rate Blood Pressure 173/103 173/103 173/99 Blood Pressure [Right] O2 Sat by Pulse 98 98 98 Oximetry 11/24/19 11/25/19 23:00 00:01 Temperature Pulse Rate 93 H 92 H Respiratory 16 11 L Rate Blood Pressure 178/106 183/103 Blood Pressure [Right] O2 Sat by Pulse 99 100 Oximetry - Lab Data Result diagrams: 11/25/19 07:20 11/25/19 07:20 Lab Results 11/24/19 11/24/19 11/24/19 Range/Units 16:00 16:00 16:00 WBC 6.2 (4.5-11.0) K/mm3 RBC 4.33 (3.65-5.03) M/mm3 Hgb 12.1 (11.8-15.2) gm/dl Hct 37.4 (35.5-45.6) % MCV 86 (84-94) fl MCH 28 (28-32) pg MCHC 32 (32-34) % RDW 19.6 H (13.2-15.2) % Plt Count 171 (140-440) K/mm3 Lymph % (Auto) 11.3 L (13.4-35.0) % [place] % (Auto) 11.4 H (0.0-7.3) % Eos % (Auto) 1.6 (0.0-4.3) % Baso % (Auto) 0.7 (0.0-1.8) % Lymph # 0.7 L (1.2-5.4) K/mm3 Hayes # 0.7 (0.0-0.8) K/mm3 Eos # 0.1 (0.0-0.4) K/mm3 Baso # 0.0 (0.0-0.1) K/mm3 Seg Neutrophils % 75.0 H (40.0-70.0) % Seg Neutrophils # 4.6 (1.8-7.7) K/mm3 PT 13.7 (12.2-14.9) Sec. INR 1.04 (0.87-1.13) APTT 37.9 H (24.2-36.6) Sec. Thrombin Time (15.1-19.6) Sec. Sodium 135 L (137-145) mmol/L Potassium 4.8 (3.6-5.0) mmol/L Chloride 98.2 (98-107) mmol/L Carbon Dioxide 13 L (22-30) mmol/L Anion Gap 29 mmol/L BUN 49 H (9-20) mg/dL Creatinine 6.5 H (0.8-1.5) mg/dL Estimated GFR 11 ml/min BUN/Creatinine Ratio 8 % Glucose 74 L (75-100) mg/dL Calcium 8.9 (8.4-10.2) mg/dL Troponin T 0.262 H* (0.00-0.029) ng/mL Triglycerides 71 (2-149) mg/dL Cholesterol 192 (50-199) mg/dL LDL Cholesterol Direct 101 (50-130) mg/dL HDL Cholesterol 90 H (40-59) mg/dL Cholesterol/HDL Ratio 2.13 % 11/24/19 Range/Units 16:00 WBC (4.5-11.0) K/mm3 RBC (3.65-5.03) M/mm3 Hgb (11.8-15.2) gm/dl Hct (35.5-45.6) % MCV (84-94) fl MCH (28-32) pg MCHC (32-34) % RDW (13.2-15.2) % Plt Count (140-440) K/mm3 Lymph % (Auto) (13.4-35.0) % Hayes % (Auto) (0.0-7.3) % Eos % (Auto) (0.0-4.3) % Baso % (Auto) (0.0-1.8) % Lymph # (1.2-5.4) K/mm3 Hayes # (0.0-0.8) K/mm3 Eos # (0.0-0.4) K/mm3 Baso # (0.0-0.1) K/mm3 Seg Neutrophils % (40.0-70.0) % Seg Neutrophils # (1.8-7.7) K/mm3 PT (12.2-14.9) Sec. INR (0.87-1.13) APTT (24.2-36.6) Sec. Thrombin Time 16.5 (15.1-19.6) Sec. Sodium (137-145) mmol/L Potassium (3.6-5.0) mmol/L Chloride (98-107) mmol/L Carbon Dioxide (22-30) mmol/L Anion Gap mmol/L BUN (9-20) mg/dL Creatinine (0.8-1.5) mg/dL Estimated GFR ml/min BUN/Creatinine Ratio % Glucose (75-100) mg/dL Calcium (8.4-10.2) mg/dL Troponin T (0.00-0.029) ng/mL Triglycerides (2-149) mg/dL Cholesterol (50-199) mg/dL LDL Cholesterol Direct (50-130) mg/dL HDL Cholesterol (40-59) mg/dL Cholesterol/HDL Ratio % - EKG Data -: EKG Interpreted by Me - Radiology Data Radiology results: report reviewed - Medical Decision Making Patient is 54 years old male with history of end-stage renal disease on hemodialysis, hypertension and congestive heart failure and right below-knee amputation.. Patient brought to the emergency room via EMS from dialysis center. EMS stated that patient became confused with decreased responsiveness after he finishes dialysis. Patient had history of stroke and seizure before however dialysis staff stated that there is no seizure activity. Stroke protocol immediately initiated and stroke telemetry neurology examining the p atient who video conference. Patient is not a TPA candidate. Dr. Schultz, neurologist advised to order CTA brain and neck to rule out any significant thrombus. I also discussed the patient was Dr. Baeza, law researcher for dialysis after CTA. Dr. Baeza stated that he will dialyze the patient tomorrow. Critical Care Time: Yes Critical care time in (mins) excluding proc time.: 30 Critical care attestation.: If time is entered above; I have spent that time in minutes in the direct care of this critically ill patient, excluding procedure time. ED Disposition Clinical Impression: CVA (cerebral vascular accident), ESRD needing dialysis, Elevated troponin level Hypertension Qualifiers: Hypertension type: essential hypertension Qualified Code(s): I10 - Essential (primary) hypertension Disposition: DC-09 OP ADMIT IP TO THIS HOSP Is pt being admited?: No Condition: Stable
--- NOTE | 2019-11-24 16:17 | Cat Scan Report ---
CT BRAIN: 11/24/2019 INDICATION / CLINICAL INFORMATION: Unresponsiveness. COMPARISON: CT brain 09/27/2019. CT brain 09/09/2019. FINDINGS: BRAIN/INTRACRANIAL STRUCTURES: Unenhanced CT images of the brain were obtained and compared to prior exams. There has been no change. Again seen is encephalomalacia in the right middle cerebral artery distribution, consistent with prio r ischemic injury. There is no evidence of acute ischemic injury, hemorrhage, or mass. There are no abnormal extra-axial fluid collections. Atherosclerotic vascular calcifications are present in the distal internal carotid arteries and verte bral arteries. EXTRACRANIAL STRUCTURES: Unremarkable. IMPRESSION: No acute abnormality. Stable chronic and age-related changes. No CT correlate for unresponsiveness noted at this time. All CT scans at this location are performed using dose reduction to ALARA by means of automated expos ure control. Signer Name: Marco Reid MD Signed: 11/24/2019 4:12 PM Workstation Name: [id number]
[2019-11-24 16:24] LABS: Basophils % (Auto) 0.7 % (0.0-1.8); Eosinophils # (Auto) 0.1 K/mm3 (0.0-0.4); Eosinophils % (Auto) 1.6 % (0.0-4.3); Hematocrit 37.4 % (35.5-45.6); Hemoglobin 12.1 gm/dl (11.8-15.2); Lymphocytes # (Auto) 0.7 K/mm3 (1.2-5.4); Lymphocytes % (Auto) 11.3 % (13.4-35.0); Mean Corpuscular HGB Conc 32 % (32-34); Mean Corpuscular Volume 86 fl (84-94); Monocytes # (Auto) 0.7 K/mm3 (0.0-0.8); Monocytes % (Auto) 11.4 % (0.0-7.3); Platelet Count 171 K/mm3 (140-440); Red Blood Count 4.33 M/mm3 (3.65-5.03); Red Cell Distribution Width 19.6 % (13.2-15.2)
[2019-11-24 16:34] LABS: INR 1.04 (0.87-1.13)
[2019-11-24 16:42] LABS: Partial Thromboplastin Time 37.9 Sec. (24.2-36.6)
[2019-11-24 16:47] LABS: Calcium 8.9 mg/dL (8.4-10.2)
[2019-11-24 17:14] LABS: Chol/HDL Ratio 2.13 %
[2019-11-24] MEDS ORDERED: LORazepam 2 MG/ML VIAL IV ONE (18:43)
--- NOTE | 2019-11-24 19:10 | Progress Note ---
Subjective Date of service: 11/24/19 Interval history: follow up note went over all labs and noted troponin level will continue to recheck progressing neuro state Objective - Vital Sign Vital Signs - 12hr 11/24/19 11/24/19 11/24/19 16:24 16:25 18:43 Temperature Pulse Rate 95 H 93 H Respiratory 21 21 13 Rate Blood Pressure 198/112 189/104 [Right] O2 Sat by Pulse 99 100 Oximetry 11/24/19 18:55 Temperature 98.8 F Pulse Rate Respiratory Rate Blood Pressure [Right] O2 Sat by Pulse Oximetry - Laboratory Findings CBC and BMP: 11/24/19 16:00 11/24/19 16:00 Abnormal Lab Findings: Abnormal Labs 11/24/19 11/24/19 11/24/19 16:00 16:00 16:00 RDW 19.6 H Lymph % (Auto) 11.3 L [place] % (Auto) 11.4 H Lymph # 0.7 L Seg Neutrophils % 75.0 H APTT 37.9 H Sodium 135 L Carbon Dioxide 13 L BUN 49 H Creatinine 6.5 H Glucose 74 L Troponin T 0.262 H* HDL Cholesterol 90 H
--- NOTE | 2019-11-24 20:40 | Cat Scan Report ---
NECK CT ANGIOGRAM 11/24/2011 HISTORY: Altered mental status FINDINGS: Contrast-enhanced CT angiographic images of the neck were obtained. In addition to the axia l images, sagittal and coronal reformatted images were obtained. In addition, 3 plane MIP reconstruct ions were produced. NASCET like criteria were used in this evaluation. There is no evidence of significant vascular abnormality. No evidence of carotid bifurcation stenosis. Vertebral arteries are markedly hypoplastic bilaterally most likely due to developmental variation Regular significant degenerative abnormalities of the cervical spine are present. The C3 vertebral body is completely compressed (vertebra plana), unchanged when compared to a cervica l spine CT from 09/27/2019. Fusion at the C4-5 level is again noted. IMPRESSION: No evidence of carotid bifurcation stenosis. All CT scans at this location are performed using dose reduction to ALARA by means of automated expos ure control. Signer Name: Marco Reid MD Signed: 11/24/2019 8:36 PM Workstation Name: [id number]
--- NOTE | 2019-11-24 20:44 | Cat Scan Report ---
HEAD CT ANGIOGRAM 11/24/2019 HISTORY: Altered mental status FINDINGS: Contrast-enhanced CT angiographic images of the intracranial circulation were obtained. In addition to the axial images, sagittal and coronal reformatted images were obtained. In addition, 3 p ad MIP reconstructions were produced. There is no evidence of significant abnormality. Some atherosclerotic vascular calcifications are present along the course of the distal internal campos tid arteries bilaterally, with mild narrowing, no evidence of occlusion or significant stenosis. Vascular contours at the level of [place] of [place] are unremarkable. The vertebrobasilar system is relatively hypoplastic on a developmental basis. Incidental note is made of some relative thickening along the course of the infundibulum of the pitui tary gland. This is a nonspecific finding, and can be seen as normal variant, or the result of lympho cytic changes of the infundibulum. Clinical symptoms of pituitary axis dysfunction IMPRESSION: No evidence of significant vascular abnormality. No CT angiographic correlate for altered mental status. Thickening of the infundibulum of the pituitary gland of uncertain etiology. All CT scans at this location are performed using dose reduction to ALARA by means of automated expos ure control. Signer Name: Marco Reid MD Signed: 11/24/2019 8:39 PM Workstation Name: [id number]
[2019-11-24] MEDS ORDERED: DEXTROSE 50% IN WATER (25GM) 50 ML SYRINGE IV PRN (23:19)
[2019-11-24] MEDS ORDERED: ONDANSETRON 4 MG/2 ML INJ IV PRN (23:19)
[2019-11-24] MEDS ORDERED: MAGNESIUM HYDROXIDE (MOM) ORAL LIQD UDC PO PRN (23:19)
--- NOTE | 2019-11-25 04:20 | Consultation ---
HISTORY OF PRESENT ILLNESS: This 54-year-old black male seen for stroke alert. The patient brought by EMS directly to CT scan room. The patient was assessed there. History as we have it is he was at [facility] [place]. The dialysis had been finished. His vital signs were stable except for a slightly elevated blood pressure of 200/100. He was afebrile. His blood sugar was 78. EMS was contacted because the patient was not acting like himself. He was brought to the hospital, he was observed, taken to CT scan. I observed him to have a mild right-sided weakness, but some of this is compromised by the fact he has a BKA amputation of his right leg. I did look at the CT scan, he has an old right cerebral infarct, chronic in the MCA territory. There is no acute edema. There is no hemorrhage. There is no mass effect. I do not detect any new stroke of the right or left cerebral hemisphere. There is compensatory dilation of the right temporal horn of the ventricular system, indicating a substantial shrinkage of the right temporal lobe. I do not have a history as yet if he has had seizures previously. Examination further shows him to be having his eyes open. He does not respond to voice. He cannot follow simple commands. He seems very altered in his mental state and level of communication by not speaking and not being able to follow simple commands. At this point, the patient's condition; however, is to be taken back to the Emergency Room where laboratories should be obtained in further assessment, EKG, etc., to be obtained. At this point, he has clearly not had an acute hemorrhage and noticed that he has had the old stroke. I do not see anything on the CT scan to make me think he has had an acute stroke. Complications of course is that he has received heparin during his dialysis and that technically would not make him a candidate for TPA based on my review of the records, but that is also subject to the review of the ED physician and/or any other consultants that he may choose to contact. I plan to follow the patient post-admission with the hospitalist. At this point, the patient was not observed to have any seizure activity. I do not think he has meningitis. He was wearing a face mask, but I was directly told that all the inhabitants of the dialysis center were wearing facemask, presumably for influenza precaution not because he has communicable disease, but this will be further looked into. JOB# [id number] ELBERT/MERA
--- NOTE | 2019-11-25 05:45 | History and Physical Report ---
History of Present Illness Date of examination: 11/24/19 Date of admission: 11/24/19 22:13 Chief complaint: Altered mental status History of present illness: Patient is a 54-year-old male with known history of end-stage renal disease on dialysis was brought into the emergency room today with a change in mental status. Patient was said to have been confused shortly after the dialysis today. Patient also has a known history of CVA and seizure disorder. There has been no history of seizure activity today. There has been no history of fever or chills, no chest pain or shortness of breath, no nausea vomiting. Upon arrival in the emergency room patient was evaluated by the teleneurologist and the recommendation is to have patient worked up for possible CVA. Past History Past Medical History: COPD, diabetes, ESRD, heart failure, hypertension Past Surgical History: Other (Right below-knee amputation, left upper extremity fistula placement) Social history: no significant social history Family history: no significant family history Medications and Allergies Allergies Allergy/AdvReac Type Severity Reaction Status Date / Time No Known Allergies Allergy Verified 09/27/19 03:07 Home Medications Medication Instructions Recorded Confirmed Last Taken Type Metoprolol Tartrate 75 mg PO BID 11/24/19 11/24/19 Unknown History Sevelamer Carbonate [Renvela] 800 mg PO TIDWM 11/24/19 11/24/19 Unknown History Warfarin [Coumadin] 1 mg PO QHS 11/24/19 11/24/19 Unknown History amLODIPine [Norvasc] 10 mg PO DAILY 11/24/19 11/24/19 Unknown History Active Meds: Active Medications Acetaminophen (Tylenol) 650 mg PO Q4H PRN PRN Reason: Pain MILD(1-3)/Fever >100.5/FRAZIER Dextrose (D50w (25gm) Syringe) 0 ml IV Q30MIN PRN; Protocol PRN Reason: Hypoglycemia Insulin Human Lispro (Humalog) 0 unit SUB-Q ACHS JOHN; Protocol Magnesium Hydroxide (Milk Of Magnesia) 30 ml PO Q4H PRN PRN Reason: Constipation Ondansetron HCl (Zofran) 4 mg IV Q8H PRN PRN Reason: Nausea And Vomiting Sodium Chloride (Sodium Chloride Flush Syringe 10 Ml) 10 ml IV BID JOHN Sodium Chloride (Sodium Chloride Flush Syringe 10 Ml) 10 ml IV PRN PRN PRN Reason: LINE FLUSH Review of Systems Constitutional: no fever, no chills, no fatigue Cardiovascular: no chest pain, no palpitations, no dyspnea on exertion Respiratory: no cough, no congestion Gastrointestinal: no abdominal pain, no nausea, no vomiting, no diarrhea Genitourinary Male: no dysuria, no hematuria Musculoskeletal: no neck pain, no muscle cramps Integumentary: no rash, no pruritis Neurological: no weakness, no seizures, no syncope, no headaches Exam - Constitutional Vitals: Temp Pulse Resp BP Pulse Ox 98.9 F 92 H 18 172/97 98 11/25/19 01:45 11/25/19 01:45 11/25/19 01:45 11/25/19 01:45 11/25/19 01:45 General appearance: Present: no acute distress, well-nourished - EENT Eyes: Present: PERRL, EOM intact ENT: hearing intact, clear oral mucosa, dentition normal - Neck Neck: Present: supple, normal ROM - Respiratory Respiratory effort: normal Respiratory: bilateral: CTA - Cardiovascular Rhythm: regular Heart Sounds: Present: S1 & S2 - Extremities Extremities: no ischemia, No edema, Full ROM, abnormal (Right below-knee amputation) Extremity abnormal: edema Peripheral Pulses: within normal limits - Abdominal General gastrointestinal: Present: soft, non-tender, non-distended - Integumentary Integumentary: Present: clear, warm, dry - Musculoskeletal Musculoskeletal: strength equal bilaterally - Psychiatric Psychiatric: appropriate mood/affect, intact judgment & insight, cooperative - Neurologic Neurologic: CNII-XII intact, moves all extremities Results - Labs CBC & Chem 7: 11/24/19 16:00 11/24/19 16:00 Labs: Abnormal lab results 11/24/19 11/24/19 11/24/19 Range/Units 16:00 16:00 16:00 RDW 19.6 H (13.2-15.2) % Lymph % (Auto) 11.3 L (13.4-35.0) % [place] % (Auto) 11.4 H (0.0-7.3) % Lymph # 0.7 L (1.2-5.4) K/mm3 Seg Neutrophils % 75.0 H (40.0-70.0) % APTT 37.9 H (24.2-36.6) Sec. Sodium 135 L (137-145) mmol/L Carbon Dioxide 13 L (22-30) mmol/L BUN 49 H (9-20) mg/dL Creatinine 6.5 H (0.8-1.5) mg/dL Glucose 74 L (75-100) mg/dL Troponin T 0.262 H* (0.00-0.029) ng/mL HDL Cholesterol 90 H (40-59) mg/dL Assessment and Plan - Patient Problems (1) Altered mental status Current Visit: No Status: Acute Plan to address problem: Etiology is unclear we will monitor mental status closely. Patient has known history of seizure disorder and history of CVA in the past. No reported seizure activity today however will place on seizure precautions. Patient is currently being worked up for possible CVA. (2) Elevated troponin level Current Visit: Yes Status: Acute Plan to address problem: He has been no history of chest pain. EKG has been within normal limits. (3) ESRD on hemodialysis Current Visit: No Status: Acute Plan to address problem: We will place consult to nephrology for dialysis. (4) DVT prophylaxis Current Visit: No Status: Acute Plan to address problem: Patient placed on anticoagulation (5) Full code status Current Visit: Yes Status: Acute
--- NOTE | 2019-11-25 07:46 | Progress Note ---
Subjective Date of service: 11/25/19 Interval history: see my initial set of several notes for code stroke evaluation... I got hx directly from EMS who picked him up at the [facility]ail[facility] center post dialysis... he does have BK amputation right leg so know vascular disease the CT of head shows old right MCA stroke so new stroke that would be detected on MRI likely possible Will follow Thanks Objective - Vital Sign Vital Signs - 12hr 11/24/19 11/24/19 11/24/19 20:00 21:00 21:25 Temperature Pulse Rate 93 H 94 H 90 Respiratory 14 15 12 Rate Blood Pressure 196/106 173/103 173/103 O2 Sat by Pulse 97 98 98 Oximetry 11/24/19 11/24/19 11/25/19 22:00 23:00 00:01 Temperature Pulse Rate 94 H 93 H 92 H Respiratory 12 16 11 L Rate Blood Pressure 173/99 178/106 183/103 O2 Sat by Pulse 98 99 100 Oximetry 11/25/19 11/25/19 11/25/19 01:28 01:45 05:05 Temperature 98.9 F 98.1 F Pulse Rate 90 92 H 90 Respiratory 18 18 Rate Blood Pressure 172/97 168/92 O2 Sat by Pulse 98 99 Oximetry 11/25/19 07:25 Temperature 98.9 F Pulse Rate 90 Respiratory 18 Rate Blood Pressure 175/93 O2 Sat by Pulse 98 Oximetry - Laboratory Findings CBC and BMP: 11/24/19 16:00 11/24/19 16:00 Abnormal Lab Findings: Abnormal Labs 11/24/19 11/24/19 11/24/19 16:00 16:00 16:00 RDW 19.6 H Lymph % (Auto) 11.3 L Caroline % (Auto) 11.4 H Lymph # 0.7 L Seg Neutrophils % 75.0 H APTT 37.9 H Sodium 135 L Carbon Dioxide 13 L BUN 49 H Creatinine 6.5 H Glucose 74 L Troponin T 0.262 H* HDL Cholesterol 90 H
[2019-11-25] MEDS: SEVELAMER CARBONATE 800 MG TAB PO SCH ×3 (08:08→16:47)
[2019-11-25] MEDS: INSULIN LISPRO 100 UNIT/ML SUB-Q SCH ×4 (08:10→21:49)
[2019-11-25 09:06] LABS: Basophils % (Auto) 1.1 % (0.0-1.8); Eosinophils # (Auto) 0.1 K/mm3 (0.0-0.4); Eosinophils % (Auto) 3.3 % (0.0-4.3); Hematocrit 33.5 % (35.5-45.6); Hemoglobin 10.6 gm/dl (11.8-15.2); Lymphocytes % (Auto) 22.6 % (13.4-35.0); Mean Corpuscular HGB Conc 32 % (32-34); Mean Corpuscular Volume 89 fl (84-94); Monocytes # (Auto) 0.7 K/mm3 (0.0-0.8); Monocytes % (Auto) 14.9 % (0.0-7.3); Platelet Count 159 K/mm3 (140-440); Red Blood Count 3.78 M/mm3 (3.65-5.03); Red Cell Distribution Width 18.7 % (13.2-15.2)
[2019-11-25 09:16] LABS: Calcium 8.2 mg/dL (8.4-10.2)
[2019-11-25 09:50] LABS: INR 1.19 (0.87-1.13)
[2019-11-25 09:51] LABS: Partial Thromboplastin Time 38.9 Sec. (24.2-36.6)
--- NOTE | 2019-11-25 10:31 | Consultation ---
History of Present Illness - History of Present Illness Thank you for the consultation patient was evaluated today. Source of information; and [facility] current records were reviewed History of presenting illness; Patient is a 54-year-old -[place] man who's been admitted here with altered mental status during dialysis, Patient underwent neurological workup currently doing much better, he is fully alert awake oriented Patient stated that sometime during dialysis his blood pressure does drop however he has been noted to be relatively stable and has mild hypertension here He has no complaints of any headache chest pain pressure no fever or chills Past medical history significant for End-stage renal disease Anemia and end-stage renal disease Congestive heart failure Diabetes Right below-knee amputation Left upper extremity fistula Secondary hyperparathyroidism Current allergies: None Home medication present medication: Reviewed Social history, family history: Reviewed Review of systems positive for altered mental status shortly after dialysis treatment also has history of CVA and seizure disorder denied having any seizure, has been seen by neurologist All other review of systems negative Labs and x-rays: Were reviewed from the current chart Physical examination General: No acute distress HEENT: Oral mucosa moist no pharyngeal erythema no pallor or icterus no uremic order Neck: Supple no evidence of any thyromegaly trachea midline no JVD Chest: Clear to auscultation no crackles are also wheezes anteriorly Heart: Regular rate and rhythm S1-S2 heard no S3-S4 Abdomen: Soft nontender no renal bruit no CVA tenderness no suprapubic fullness no organomegaly Extremity: Minimal edema dry skin no peripheral cyanosis pulses palpable Right below-knee amputation Neurological: Alert awake follows command grossly nonfocal examination Back: Nontender thoracolumbar spine Musculoskeletal: No joint effusion noted Skin: No petechial rash/noted Assessment and plan End-stage renal disease: Given the patient did receive radiocontrast yesterday we'll arrange for hemodialysis treatment today Acidosis, should correct with hemodialysis will need follow-up labs, he is clinically asymptomatic Mild hyperkalemia to monitor and follow Altered mental status patient appears to be doing much better Secondary hyperparathyroidism: Goal hosphorus should be less than 5.5 intact PTH: Less than 600 goals were discussed with patient Malnutrition risk: High patient is to be maintained on high protein diet, probably 1.5 g protein per KG body weight Hypertension and volume: Goal systolic blood pressure currently less than 140 systolic at this time, diet plan was discussed with patient all questions were answered advised to maintain fluid restriction stated high-protein diet sodium restriction daily weight monitoring daily blood pressure monitoring was discussed with patient Dialysis access: Currently seems to be working well no acute issues Patient was adequately counseled and educated in regard to all dialysis related issues Diet plan and current labs are also discussed Counseled and educated to get further education from [employer] and related links, and upon discharge to make a follow-up appointment in the office We'll continue to follow and make recommendations from renal standpoint. If you have any questions please feel free to contact me at [phone] Thank you for the consultation. Past History Past Medical History: COPD, diabetes, ESRD, heart failure, hypertension Past Surgical History: Other (Right below-knee amputation, left upper extremity fistula placement) Social history: no significant social history Family history: no significant family history Medications and Allergies Allergies Allergy/AdvReac Type Severity Reaction Status Date / Time No Known Allergies Allergy Verified 09/27/19 03:07 Home Medications Medication Instructions Recorded Confirmed Last Taken Type Metoprolol Tartrate 75 mg PO BID 11/24/19 11/24/19 Unknown History Sevelamer Carbonate [Renvela] 800 mg PO TIDWM 11/24/19 11/24/19 Unknown History Warfarin [Coumadin] 1 mg PO QHS 11/24/19 11/24/19 Unknown History amLODIPine [Norvasc] 10 mg PO DAILY 11/24/19 11/24/19 Unknown History Active Meds: Active Medications Acetaminophen (Tylenol) 650 mg PO Q4H PRN PRN Reason: Pain MILD(1-3)/Fever >100.5/FRAZIER Amlodipine Besylate (Amlodipine) 10 mg PO DAILY REPLACED BY [facility] Dextrose (D50w (25gm) Syringe) 0 ml IV Q30MIN PRN; Protocol PRN Reason: Hypoglycemia Insulin Human Lispro (Humalog) 0 unit SUB-Q ACHS REPLACED BY [facility]; Protocol Last Admin: 11/25/19 08:10 Dose: Not Given Documented by: Magnesium Hydroxide (Milk Of Magnesia) 30 ml PO Q4H PRN PRN Reason: Constipation Metoprolol Tartrate (Metoprolol) 25 mg PO BID REPLACED BY [facility] Metoprolol Tartrate (Metoprolol) 50 mg PO BID REPLACED BY [facility] Ondansetron HCl (Zofran) 4 mg IV Q8H PRN PRN Reason: Nausea And Vomiting Sevelamer Carbonate (Renvela) 800 mg PO TIDWM REPLACED BY [facility] Last Admin: 11/25/19 08:08 Dose: 800 mg Documented by: Sodium Chloride (Sodium Chloride Flush Syringe 10 Ml) 10 ml IV BID REPLACED BY [facility] Sodium Chloride (Sodium Chloride Flush Syringe 10 Ml) 10 ml IV PRN PRN PRN Reason: LINE FLUSH Warfarin Sodium (Coumadin) 2.5 mg PO DAILY@1700 REPLACED BY [facility]; Protocol Exam - Vital Signs Vital signs: Vital Signs Pulse Pulse Ox 95 H 100 11/24/19 16:14 11/24/19 16:14 Results - Lab Results 11/25/19 07:20 11/25/19 07:20 Most recent lab results Calcium 8.2 mg/dL (8.4-10.2) L 11/25/19 07:20
[2019-11-25] MEDS: METOPROLOL TARTRATE 50 MG TAB PO SCH ×2 (11:25→21:47)
[2019-11-25] MEDS: amLODIPine 10 MG TAB PO SCH (11:25)
[2019-11-25] MEDS: METOPROLOL TARTRATE 25 MG TAB PO SCH ×2 (11:25→21:47)
[2019-11-25] MEDS: MINOXIDIL 2.5 MG TAB PO SCH (11:27)
--- NOTE | 2019-11-25 11:56 | Consultation ---
History of Present Illness - Reason for Consult Consult date: 11/25/19 - History of Present Illness HPI: 54yo male with multiple medical problems currently hospitalized for stroke work-up. Patient with ESRD on HD via left arm av fistula. We have been consulted to evaluate patient for left arm steal due to muscle wasting of the left arm. Patient denies issues with prolonged bleeding or poor clearance. ROS: as per HPI PE: NAD, A&Ox3 non-labored respirations RRR left arm av fistula with palpable thrill left hand motor/sensory intact, palpable radial pulse Plan: we will obtain arterial studies of the left arm with compression of the fistula to evaluate for steal Past History Past Medical History: COPD, diabetes, ESRD, heart failure, hypertension Past Surgical History: Other (Right below-knee amputation, left upper extremity fistula placement) Social history: no significant social history Family history: no significant family history Medications and Allergies Allergies Allergy/AdvReac Type Severity Reaction Status Date / Time No Known Allergies Allergy Verified 09/27/19 03:07 Home Medications Medication Instructions Recorded Confirmed Last Taken Type Metoprolol Tartrate 75 mg PO BID 11/24/19 11/24/19 Unknown History Sevelamer Carbonate [Renvela] 800 mg PO TIDWM 11/24/19 11/24/19 Unknown History Warfarin [Coumadin] 1 mg PO QHS 11/24/19 11/24/19 Unknown History amLODIPine [Norvasc] 10 mg PO DAILY 11/24/19 11/24/19 Unknown History Active Meds: Active Medications Acetaminophen (Tylenol) 650 mg PO Q4H PRN PRN Reason: Pain MILD(1-3)/Fever >100.5/FRAZIER Amlodipine Besylate (Amlodipine) 10 mg PO DAILY [facility] Last Admin: 11/25/19 11:25 Dose: 10 mg Documented by: Dextrose (D50w (25gm) Syringe) 0 ml IV Q30MIN PRN; Protocol PRN Reason: Hypoglycemia Insulin Human Lispro (Humalog) 0 unit SUB-Q ACHS [facility]; Protocol Last Admin: 11/25/19 08:10 Dose: Not Given Documented by: Magnesium Hydroxide (Milk Of Magnesia) 30 ml PO Q4H PRN PRN Reason: Constipation Metoprolol Tartrate (Metoprolol) 25 mg PO BID [facility] Last Admin: 11/25/19 11:25 Dose: 25 mg Documented by: Metoprolol Tartrate (Metoprolol) 50 mg PO BID [facility] Last Admin: 11/25/19 11:25 Dose: 50 mg Documented by: Minoxidil (Loniten) 2.5 mg PO QDAY [facility] Last Admin: 11/25/19 11:27 Dose: 2.5 mg Documented by: Ondansetron HCl (Zofran) 4 mg IV Q8H PRN PRN Reason: Nausea And Vomiting Sevelamer Carbonate (Renvela) 800 mg PO TIDWM [facility] Last Admin: 11/25/19 11:25 Dose: 800 mg Documented by: Sodium Chloride (Sodium Chloride Flush Syringe 10 Ml) 10 ml IV BID [facility] Last Admin: 11/25/19 11:26 Dose: 10 ml Documented by: Sodium Chloride (Sodium Chloride Flush Syringe 10 Ml) 10 ml IV PRN PRN PRN Reason: LINE FLUSH Warfarin Sodium (Coumadin) 2.5 mg PO DAILY@1700 [facility]; Protocol Exam - Constitutional Vitals: Temp Pulse Resp BP Pulse Ox 98.9 F 90 18 175/93 98 11/25/19 07:25 11/25/19 11:25 11/25/19 07:25 11/25/19 11:25 11/25/19 07:25 Results - Labs CBC & Chem 7: 11/25/19 07:20 11/25/19 07:20 Labs: Abnormal lab results 11/24/19 11/24/19 11/24/19 Range/Units 16:00 16:00 16:00 WBC (4.5-11.0) K/mm3 Hgb (11.8-15.2) gm/dl Hct (35.5-45.6) % RDW 19.6 H (13.2-15.2) % Lymph % (Auto) 11.3 L (13.4-35.0) % [place] % (Auto) 11.4 H (0.0-7.3) % Lymph # 0.7 L (1.2-5.4) K/mm3 Seg Neutrophils % 75.0 H (40.0-70.0) % PT (12.2-14.9) Sec. INR (0.87-1.13) APTT 37.9 H (24.2-36.6) Sec. Sodium 135 L (137-145) mmol/L Potassium (3.6-5.0) mmol/L Carbon Dioxide 13 L (22-30) mmol/L BUN 49 H (9-20) mg/dL Creatinine 6.5 H (0.8-1.5) mg/dL Glucose 74 L (75-100) mg/dL POC Glucose (70-105) Calcium (8.4-10.2) mg/dL Troponin T 0.262 H* (0.00-0.029) ng/mL HDL Cholesterol 90 H (40-59) mg/dL 11/25/19 11/25/19 11/25/19 Range/Units 07:20 07:20 07:20 WBC 4.4 L (4.5-11.0) K/mm3 Hgb 10.6 L (11.8-15.2) gm/dl Hct 33.5 L (35.5-45.6) % RDW 18.7 H (13.2-15.2) % Lymph % (Auto) (13.4-35.0) % [place] % (Auto) 14.9 H (0.0-7.3) % Lymph # 1.0 L (1.2-5.4) K/mm3 Seg Neutrophils % (40.0-70.0) % PT 15.3 H (12.2-14.9) Sec. INR 1.19 H (0.87-1.13) APTT 38.9 H (24.2-36.6) Sec. Sodium 136 L (137-145) mmol/L Potassium 5.3 H (3.6-5.0) mmol/L Carbon Dioxide 12 L (22-30) mmol/L BUN 63 H (9-20) mg/dL Creatinine 8.6 H (0.8-1.5) mg/dL Glucose 39 L* (75-100) mg/dL POC Glucose (70-105) Calcium 8.2 L (8.4-10.2) mg/dL Troponin T (0.00-0.029) ng/mL HDL Cholesterol (40-59) mg/dL 11/25/19 11/25/19 Range/Units 07:42 07:49 WBC (4.5-11.0) K/mm3 Hgb (11.8-15.2) gm/dl Hct (35.5-45.6) % RDW (13.2-15.2) % Lymph % (Auto) (13.4-35.0) % Ballard % (Auto) (0.0-7.3) % Lymph # (1.2-5.4) K/mm3 Seg Neutrophils % (40.0-70.0) % PT (12.2-14.9) Sec. INR (0.87-1.13) APTT (24.2-36.6) Sec. Sodium (137-145) mmol/L Potassium (3.6-5.0) mmol/L Carbon Dioxide (22-30) mmol/L BUN (9-20) mg/dL Creatinine (0.8-1.5) mg/dL Glucose (75-100) mg/dL POC Glucose 44 L 45 L (70-105) Calcium (8.4-10.2) mg/dL Troponin T (0.00-0.029) ng/mL HDL Cholesterol (40-59) mg/dL
--- NOTE | 2019-11-25 12:44 | Progress Note ---
Assessment and Plan Assessment and plan: Acute encephalopathy. Patient appears back to baseline. Unclear etiology. Neurology following. Elevated troponin. Patient denies any chest pain. Cardiology consultation. Etiology may be secondary to renal disease. ESRD. Continue hemodialysis per nephrology. Subclavian steal syndrome. Vascular surgery evaluation. History Interval history: No new issues overnight. Patient appears back to baseline mental status. Hospitalist Physical - Constitutional Vitals: Temp Pulse Resp BP Pulse Ox 98.9 F 84 18 175/102 100 11/25/19 07:25 11/25/19 12:06 11/25/19 12:06 11/25/19 12:06 11/25/19 12:06 General appearance: Present: no acute distress, well-nourished - EENT Eyes: Present: PERRL, EOM intact ENT: hearing intact, clear oral mucosa, dentition normal - Neck Neck: Present: supple, normal ROM - Respiratory Respiratory effort: normal Respiratory: bilateral: CTA - Cardiovascular Rhythm: regular Heart Sounds: Present: S1 & S2. Absent: gallop, rub - Extremities Extremities: no ischemia, No edema, Full ROM - Abdominal General gastrointestinal: soft, non-tender, non-distended, normal bowel sounds - Integumentary Integumentary: Present: clear, warm, dry - Neurologic Neurologic: CNII-XII intact, moves all extremities Results - Labs CBC & Chem 7: 11/25/19 07:20 11/25/19 07:20 Labs: Laboratory Last Values WBC 4.4 K/mm3 (4.5-11.0) L 11/25/19 07:20 RBC 3.78 M/mm3 (3.65-5.03) 11/25/19 07:20 Hgb 10.6 gm/dl (11.8-15.2) L 11/25/19 07:20 Hct 33.5 % (35.5-45.6) L 11/25/19 07:20 MCV 89 fl (84-94) 11/25/19 07:20 MCH 28 pg (28-32) 11/25/19 07:20 MCHC 32 % (32-34) 11/25/19 07:20 RDW 18.7 % (13.2-15.2) H 11/25/19 07:20 Plt Count 159 K/mm3 (140-440) 11/25/19 07:20 Lymph % (Auto) 22.6 % (13.4-35.0) 11/25/19 07:20 [place] % (Auto) 14.9 % (0.0-7.3) H 11/25/19 07:20 Eos % (Auto) 3.3 % (0.0-4.3) 11/25/19 07:20 Baso % (Auto) 1.1 % (0.0-1.8) 11/25/19 07:20 Lymph # 1.0 K/mm3 (1.2-5.4) L 11/25/19 07:20 [place] # 0.7 K/mm3 (0.0-0.8) 11/25/19 07:20 Eos # 0.1 K/mm3 (0.0-0.4) 11/25/19 07:20 Baso # 0.0 K/mm3 (0.0-0.1) 11/25/19 07:20 Seg Neutrophils % 58.1 % (40.0-70.0) 11/25/19 07:20 Seg Neutrophils # 2.6 K/mm3 (1.8-7.7) 11/25/19 07:20 PT 15.3 Sec. (12.2-14.9) H 11/25/19 07:20 INR 1.19 (0.87-1.13) H 11/25/19 07:20 APTT 38.9 Sec. (24.2-36.6) H 11/25/19 07:20 Thrombin Time 16.5 Sec. (15.1-19.6) 11/24/19 16:00 Sodium 136 mmol/L (137-145) L 11/25/19 07:20 Potassium 5.3 mmol/L (3.6-5.0) H 11/25/19 07:20 Chloride 99.6 mmol/L (98-107) 11/25/19 07:20 Carbon Dioxide 12 mmol/L (22-30) L 11/25/19 07:20 Anion Gap 30 mmol/L 11/25/19 07:20 BUN 63 mg/dL (9-20) H 11/25/19 07:20 Creatinine 8.6 mg/dL (0.8-1.5) H 11/25/19 07:20 Estimated GFR 8 ml/min 11/25/19 07:20 BUN/Creatinine Ratio 7 % 11/25/19 07:20 Glucose 39 mg/dL (75-100) L* 11/25/19 07:20 POC Glucose 118 (70-105) H 11/25/19 12:13 Calcium 8.2 mg/dL (8.4-10.2) L 11/25/19 07:20 Troponin T 0.262 ng/mL (0.00-0.029) H* 11/24/19 16:00 Triglycerides 71 mg/dL (2-149) 11/24/19 16:00 Cholesterol 192 mg/dL (50-199) 11/24/19 16:00 LDL Cholesterol Direct 101 mg/dL (50-130) 11/24/19 16:00 HDL Cholesterol 90 mg/dL (40-59) H 11/24/19 16:00 Cholesterol/HDL Ratio 2.13 % 11/24/19 16:00 Active Medications - Current Medications Current Medications: Generic Name Dose Route Start Last Admin Trade Name Freq PRN Reason Stop Dose Admin Acetaminophen 650 mg 11/24/19 23:19 Tylenol PO Q4H PRN Pain MILD(1-3)/Fever >100.5/FRAZIER Amlodipine Besylate 10 mg 11/25/19 10:00 11/25/19 11:25 Amlodipine PO 10 mg DAILY JOHN Administration Dextrose 0 ml 11/24/19 23:19 D50w (25gm) Syringe IV Q30MIN PRN Hypoglycemia Protocol Insulin Human Lispro 0 unit 11/25/19 07:30 11/25/19 08:10 Humalog SUB-Q Not Given ACHS JOHN Protocol Magnesium Hydroxide 30 ml 11/24/19 23:19 Milk Of Magnesia PO Q4H PRN Constipation Metoprolol Tartrate 25 mg 11/25/19 10:00 11/25/19 11:25 Metoprolol PO 25 mg BID JOHN Administration Metoprolol Tartrate 50 mg 11/25/19 10:00 11/25/19 11:25 Metoprolol PO 50 mg BID JOHN Administration Minoxidil 2.5 mg 11/25/19 11:00 11/25/19 11:27 Loniten PO 2.5 mg QDAY JOHN Administration Ondansetron HCl 4 mg 11/24/19 23:19 Zofran IV Q8H PRN Nausea And Vomiting Sevelamer Carbonate 800 mg 11/25/19 08:00 11/25/19 11:25 Renvela PO 800 mg TIDWM JOHN Administration Sodium Chloride 10 ml 11/25/19 10:00 11/25/19 11:26 Sodium Chloride Flush Syringe 10 Ml IV 10 ml BID JOHN Administration Sodium Chloride 10 ml 11/24/19 23:19 Sodium Chloride Flush Syringe 10 Ml IV PRN PRN LINE FLUSH Warfarin Sodium 2.5 mg 11/25/19 17:00 Coumadin PO DAILY@1700 [facility] Protocol
[2019-11-25] MEDS ORDERED: HEPARIN 5,000 UNIT/1 ML VIAL SUB-Q SCH (14:00)
[2019-11-25] MEDS: ACETAMINOPHEN 325 MG TAB PO PRN (16:46)
[2019-11-25] MEDS: WARFARIN 2.5 MG TAB PO SCH (16:47)
[2019-11-25] MEDS ORDERED: SODIUM CHLORIDE 0.9% 100 ML IV PRN (19:24)
[2019-11-25 23:56] LABS: Hepatitis B Surface Antigen Non-Reactive (Negative); Hepatitis C Virus Antibody Non-Reactive (NonReactive)
[2019-11-26] MEDS ORDERED: SODIUM CHLORIDE*PRIMING MACHINE ONLY FOR DIALYSIS MC ONE (01:48)
[2019-11-26 07:29] LABS: INR 1.02 (0.87-1.13)
--- NOTE | 2019-11-26 08:27 | Progress Note ---
Subjective Date of service: 11/26/19 Interval history: MRI today to assess ythe right MCA area Objective - Vital Sign Vital Signs - 12hr 11/25/19 11/25/19 11/25/19 21:28 21:47 22:15 Temperature 98.1 F 98.1 F Pulse Rate 78 78 77 Respiratory 18 18 Rate Blood Pressure 151/86 151/86 159/89 O2 Sat by Pulse 99 Oximetry 11/25/19 11/25/19 11/25/19 22:30 22:45 23:00 Temperature Pulse Rate 76 77 77 Respiratory Rate Blood Pressure 146/85 153/83 143/80 O2 Sat by Pulse Oximetry 11/25/19 11/25/19 11/25/19 23:15 23:30 23:45 Temperature Pulse Rate 78 78 78 Respiratory Rate Blood Pressure 149/83 145/71 143/77 O2 Sat by Pulse Oximetry 11/26/19 11/26/19 11/26/19 00:00 00:15 00:35 Temperature 98.0 F Pulse Rate 78 76 77 Respiratory 18 Rate Blood Pressure 131/66 130/66 155/92 O2 Sat by Pulse Oximetry 11/26/19 11/26/19 01:00 05:36 Temperature 96.9 F L Pulse Rate 77 76 Respiratory 20 Rate Blood Pressure 137/84 O2 Sat by Pulse 99 Oximetry - Laboratory Findings CBC and BMP: 11/25/19 07:20 11/25/19 07:20 Abnormal Lab Findings: Abnormal Labs 11/24/19 11/24/19 11/24/19 16:00 16:00 16:00 WBC Hgb Hct RDW 19.6 H Lymph % (Auto) 11.3 L [place] % (Auto) 11.4 H Lymph # 0.7 L Seg Neutrophils % 75.0 H PT INR APTT 37.9 H Sodium 135 L Potassium Carbon Dioxide 13 L BUN 49 H Creatinine 6.5 H Glucose 74 L POC Glucose Calcium Troponin T 0.262 H* HDL Cholesterol 90 H 11/25/19 11/25/19 11/25/19 07:20 07:20 07:20 WBC 4.4 L Hgb 10.6 L Hct 33.5 L RDW 18.7 H Lymph % (Auto) [place] % (Auto) 14.9 H Lymph # 1.0 L Seg Neutrophils % PT 15.3 H INR 1.19 H APTT 38.9 H Sodium 136 L Potassium 5.3 H Carbon Dioxide 12 L BUN 63 H Creatinine 8.6 H Glucose 39 L* POC Glucose Calcium 8.2 L Troponin T HDL Cholesterol 11/25/19 11/25/19 11/25/19 07:42 07:49 12:13 WBC Hgb Hct RDW Lymph % (Auto) [place] % (Auto) Lymph # Seg Neutrophils % PT INR APTT Sodium Potassium Carbon Dioxide BUN Creatinine Glucose POC Glucose 44 L 45 L 118 H Calcium Troponin T HDL Cholesterol 11/25/19 11/25/19 11/26/19 16:34 21:29 07:55 WBC Hgb Hct RDW Lymph % (Auto) [place] % (Auto) Lymph # Seg Neutrophils % PT INR APTT Sodium Potassium Carbon Dioxide BUN Creatinine Glucose POC Glucose 109 H 108 H 157 H Calcium Troponin T HDL Cholesterol
[2019-11-26] MEDS: SEVELAMER CARBONATE 800 MG TAB PO SCH ×3 (08:56→16:59)
[2019-11-26] MEDS: INSULIN LISPRO 100 UNIT/ML SUB-Q SCH ×4 (08:56→22:31)
[2019-11-26] MEDS: MINOXIDIL 2.5 MG TAB PO SCH (09:22)
[2019-11-26] MEDS: METOPROLOL TARTRATE 50 MG TAB PO SCH ×2 (09:22→22:26)
[2019-11-26] MEDS: amLODIPine 10 MG TAB PO SCH (09:23)
[2019-11-26] MEDS: METOPROLOL TARTRATE 25 MG TAB PO SCH ×2 (09:24→22:27)
--- NOTE | 2019-11-26 11:03 | Consultation ---
History of Present Illness Consult date: 11/26/19 Requesting physician: GABBY MALHOTRA Consult reason: elevated troponin History of present illness: The pt is a 54-year-old male with a past medical history significant for end- stage renal disease on HD, seizure, hypertension, type 2 diabetes, peripheral vascular disease and GERD and COPD. Pt presented for evaluation of altered mental status noted during dialysis. Pt reports he thinks his "blood sugar was acting up". BG did drop to 39 following arrival. Pt says "this happens all the time". Pt denies any occurrence of chest pain, SOB, palpitations, n/v, diaphoresis, dizziness or syncope. Pt has been diagnosed with acute enecphalopathy and subclavian steal syndrome, vascular team following. He was noted to have elevated troponin and thus cardiology has been consulted. Echo done 08/2019 showed EF 50-55%, impaired relaxation, increased RA pressure, left pleural effusion. Past History Past Medical History: COPD, diabetes, ESRD, heart failure, hypertension Past Surgical History: Other (Right below-knee amputation, left upper extremity fistula placement) Social history: no significant social history Family history: no significant family history Medications and Allergies Allergies Allergy/AdvReac Type Severity Reaction Status Date / Time No Known Allergies Allergy Verified 09/27/19 03:07 Home Medications Medication Instructions Recorded Confirmed Last Taken Type Metoprolol Tartrate 75 mg PO BID 11/24/19 11/24/19 Unknown History Sevelamer Carbonate [Renvela] 800 mg PO TIDWM 11/24/19 11/24/19 Unknown History Warfarin [Coumadin] 1 mg PO QHS 11/24/19 11/24/19 Unknown History amLODIPine [Norvasc] 10 mg PO DAILY 11/24/19 11/24/19 Unknown History Active Meds: Active Medications Acetaminophen (Tylenol) 650 mg PO Q4H PRN PRN Reason: Pain MILD(1-3)/Fever >100.5/FRAZIER Last Admin: 11/25/19 16:46 Dose: 650 mg Documented by: Amlodipine Besylate (Amlodipine) 10 mg PO DAILY [facility] Last Admin: 11/26/19 09:23 Dose: 10 mg Documented by: Dextrose (D50w (25gm) Syringe) 0 ml IV Q30MIN PRN; Protocol PRN Reason: Hypoglycemia Sodium Chloride (Nacl 0.9%) 100 mls @ 999 mls/hr IV CARLOS A PRN PRN Reason: Hypotension Insulin Human Lispro (Humalog) 0 unit SUB-Q ACHS [facility]; Protocol Last Admin: 11/26/19 08:56 Dose: 2 unit Documented by: Magnesium Hydroxide (Milk Of Magnesia) 30 ml PO Q4H PRN PRN Reason: Constipation Metoprolol Tartrate (Metoprolol) 25 mg PO BID [facility] Last Admin: 11/26/19 09:24 Dose: 25 mg Documented by: Metoprolol Tartrate (Metoprolol) 50 mg PO BID [facility] Last Admin: 11/26/19 09:22 Dose: 50 mg Documented by: Minoxidil (Loniten) 2.5 mg PO QDAY [facility] Last Admin: 11/26/19 09:22 Dose: 2.5 mg Documented by: Ondansetron HCl (Zofran) 4 mg IV Q8H PRN PRN Reason: Nausea And Vomiting Sevelamer Carbonate (Renvela) 800 mg PO TIDWM [facility] Last Admin: 11/26/19 08:56 Dose: 800 mg Documented by: Sodium Chloride (Sodium Chloride Flush Syringe 10 Ml) 10 ml IV BID [facility] Last Admin: 11/26/19 09:25 Dose: 10 ml Documented by: Sodium Chloride (Sodium Chloride Flush Syringe 10 Ml) 10 ml IV PRN PRN PRN Reason: LINE FLUSH Warfarin Sodium (Coumadin) 2.5 mg PO DAILY@1700 [facility]; Protocol Last Admin: 11/25/19 16:47 Dose: 2.5 mg Documented by: Review of Systems Constitutional: no weight loss, no weight gain, no fever, no chills, no sweats Ears, nose, mouth and throat: no ear pain, no nose pain, no sinus pressure, no sinus pain Cardiovascular: no chest pain, no palpitations, no rapid/irregular heart beat, no edema, no syncope, no lightheadedness, no shortness of breath, no dyspnea on exertion, no high blood pressure Respiratory: no cough, no shortness of breath, no dyspnea on exertion, no congestion, no wheezing, no pain on inspiration Gastrointestinal: no abdominal pain, no nausea, no vomiting, no diarrhea, no constipation, no change in bowel habits Genitourinary Male: no dysuria, no hematuria, no flank pain, no discharge, no urinary frequency, no urinary hesitancy Musculoskeletal: no neck stiffness, no neck pain, no shooting arm pain, no arm numbness/tingling, no low back pain, no shooting leg pain Integumentary: no rash, no pruritis, no redness, no sores, no wounds Neurological: no head injury, no paralysis, no weakness, no parathesias, no numbness, no tingling, no seizures, no syncope Psychiatric: disorientation, no anxiety Endocrine: no cold intolerance, no heat intolerance Hematologic/Lymphatic: no easy bruising, no easy bleeding Allergic/Immunologic: no urticaria, no wheezing Physical Examination Vital Signs Pulse Pulse Ox 95 H 100 11/24/19 16:14 11/24/19 16:14 General appearance: no acute distress HEENT: Positive: PERRL, Normocephaly, Mucus Membranes Moist Neck: Positive: neck supple, trachea midline Cardiac: Positive: Reg Rate and Rhythm, S1/S2 Lungs: Positive: Decreased Breath Sounds Neuro: Positive: Grossly Intact Abdomen: Negative: Tender Skin: Negative: Rash Extremities: Absent: edema Results 11/25/19 07:20 11/25/19 07:20 Coagulation 11/26/19 Range/Units 06:58 PT 13.5 (12.2-14.9) Sec. INR 1.02 (0.87-1.13) - Imaging and Cardiology Echo: report reviewed (08/2019 showed EF 50-55%, impaired relaxation, increased RA pressure, left pleural effusion.) EKG: report reviewed, image reviewed EKG interpretations - Telemetry EKG Rhythm: Sinus Rhythm - EKG Sinus rhythms and dysrhythmias: sinus rhythm Assessment and Plan CE elevation appears c/w NSTEMI type II. Pt denies any occurrence of chest pain, SOB, palpitations, n/v, diaphoresis, dizziness or syncope. Echo done 08/2019 showed EF 50-55%, impaired relaxation, increased RA pressure, left pleural effusion. Cont to trend Miladys and f/u ECG in AM. The patient has been seen in conjunction with Dr. Richard Mitchell who agrees with the assessment and plan of care. - Patient Problems (1) Altered mental status Current Visit: Yes Status: Acute (2) Subclavian steal syndrome Current Visit: Yes Status: Suspected (3) ESRD on dialysis Current Visit: Yes Status: Chronic (4) NSTEMI (non-ST elevated myocardial infarction) Current Visit: Yes Status: Acute Plan to address problem: suspect type II (5) Hypertension Current Visit: Yes Status: Chronic Qualifiers: Hypertension type: essential hypertension Qualified Code(s): I10 - Essential (primary) hypertension (6) Diabetes Current Visit: Yes Status: Chronic (7) PVD (peripheral vascular disease) Current Visit: Yes Status: Chronic (8) History of seizure Current Visit: Yes Status: Chronic (9) COPD (chronic obstructive pulmonary disease) Current Visit: Yes Status: Chronic (10) GERD (gastroesophageal reflux disease) Current Visit: Yes Status: Chronic
--- NOTE | 2019-11-26 12:08 | Progress Note ---
Assessment and Plan Assessment and plan: Acute metabolic encephalopathy. Patient appears back to baseline. Etiology appears to have been related to hypoglycemia. Continue D50 as needed. Neurology following. NSTEMI type II. Patient with elevated troponin consistent with NSTEMI type II. Patient denies any chest pain. Cardiology following. Cont to trend Miladys and f/u ECG in AM. ESRD. Continue hemodialysis per nephrology. Subclavian steal syndrome. per Vascular surgery evaluation. History Interval history: No new issues overnight. Patient appears back to baseline mental status. Hospitalist Physical - Constitutional Vitals: Temp Pulse Resp BP Pulse Ox 98.8 F 78 18 137/83 99 11/26/19 07:42 11/26/19 09:24 11/26/19 07:42 11/26/19 09:24 11/26/19 07:42 General appearance: Present: no acute distress - EENT Eyes: Present: PERRL, EOM intact ENT: hearing intact, clear oral mucosa, dentition normal - Neck Neck: Present: supple, normal ROM - Respiratory Respiratory effort: normal Respiratory: bilateral: CTA - Cardiovascular Rhythm: regular Heart Sounds: Present: S1 & S2. Absent: gallop, rub - Extremities Extremities: no ischemia, No edema, Full ROM - Abdominal General gastrointestinal: soft, non-tender, non-distended, normal bowel sounds - Integumentary Integumentary: Present: clear, warm, dry - Neurologic Neurologic: CNII-XII intact, moves all extremities Results - Labs CBC & Chem 7: 11/25/19 07:20 11/25/19 07:20 Labs: Laboratory Last Values WBC 4.4 K/mm3 (4.5-11.0) L 11/25/19 07:20 RBC 3.78 M/mm3 (3.65-5.03) 11/25/19 07:20 Hgb 10.6 gm/dl (11.8-15.2) L 11/25/19 07:20 Hct 33.5 % (35.5-45.6) L 11/25/19 07:20 MCV 89 fl (84-94) 11/25/19 07:20 MCH 28 pg (28-32) 11/25/19 07:20 MCHC 32 % (32-34) 11/25/19 07:20 RDW 18.7 % (13.2-15.2) H 11/25/19 07:20 Plt Count 159 K/mm3 (140-440) 11/25/19 07:20 Lymph % (Auto) 22.6 % (13.4-35.0) 11/25/19 07:20 [place] % (Auto) 14.9 % (0.0-7.3) H 11/25/19 07:20 Eos % (Auto) 3.3 % (0.0-4.3) 11/25/19 07:20 Baso % (Auto) 1.1 % (0.0-1.8) 11/25/19 07:20 Lymph # 1.0 K/mm3 (1.2-5.4) L 11/25/19 07:20 [place] # 0.7 K/mm3 (0.0-0.8) 11/25/19 07:20 Eos # 0.1 K/mm3 (0.0-0.4) 11/25/19 07:20 Baso # 0.0 K/mm3 (0.0-0.1) 11/25/19 07:20 Seg Neutrophils % 58.1 % (40.0-70.0) 11/25/19 07:20 Seg Neutrophils # 2.6 K/mm3 (1.8-7.7) 11/25/19 07:20 PT 13.5 Sec. (12.2-14.9) 11/26/19 06:58 INR 1.02 (0.87-1.13) 11/26/19 06:58 APTT 38.9 Sec. (24.2-36.6) H 11/25/19 07:20 Thrombin Time 16.5 Sec. (15.1-19.6) 11/24/19 16:00 Sodium 136 mmol/L (137-145) L 11/25/19 07:20 Potassium 5.3 mmol/L (3.6-5.0) H 11/25/19 07:20 Chloride 99.6 mmol/L (98-107) 11/25/19 07:20 Carbon Dioxide 12 mmol/L (22-30) L 11/25/19 07:20 Anion Gap 30 mmol/L 11/25/19 07:20 BUN 63 mg/dL (9-20) H 11/25/19 07:20 Creatinine 8.6 mg/dL (0.8-1.5) H 11/25/19 07:20 Estimated GFR 8 ml/min 11/25/19 07:20 BUN/Creatinine Ratio 7 % 11/25/19 07:20 Glucose 39 mg/dL (75-100) L* 11/25/19 07:20 POC Glucose 53 (70-105) L 11/26/19 11:24 Calcium 8.2 mg/dL (8.4-10.2) L 11/25/19 07:20 Troponin T 0.262 ng/mL (0.00-0.029) H* 11/24/19 16:00 Triglycerides 71 mg/dL (2-149) 11/24/19 16:00 Cholesterol 192 mg/dL (50-199) 11/24/19 16:00 LDL Cholesterol Direct 101 mg/dL (50-130) 11/24/19 16:00 HDL Cholesterol 90 mg/dL (40-59) H 11/24/19 16:00 Cholesterol/HDL Ratio 2.13 % 11/24/19 16:00 Hepatitis A IgM Ab Non-reactive (NonReactive) 11/25/19 22:50 Hep Bs Antigen Non-reactive (Negative) 11/25/19 22:50 Hep B Core IgM Ab Non-reactive (NonReactive) 11/25/19 22:50 Hepatitis C Antibody Non-reactive (NonReactive) 11/25/19 22:50 Active Medications - Current Medications Current Medications: Generic Name Dose Route Start Last Admin Trade Name Freq PRN Reason Stop Dose Admin Acetaminophen 650 mg 11/24/19 23:19 11/25/19 16:46 Tylenol PO 650 mg Q4H PRN Administration Pain MILD(1-3)/Fever >100.5/FRAZIER Amlodipine Besylate 10 mg 11/25/19 10:00 11/26/19 09:23 Amlodipine PO 10 mg DAILY JOHN Administration Dextrose 0 ml 11/24/19 23:19 D50w (25gm) Syringe IV Q30MIN PRN Hypoglycemia Protocol Sodium Chloride 100 mls @ 999 mls/hr 11/25/19 19:24 Nacl 0.9% IV CARLOS A PRN Hypotension Insulin Human Lispro 0 unit 11/25/19 07:30 11/26/19 11:43 Humalog SUB-Q Not Given ACHS JOHN Protocol Magnesium Hydroxide 30 ml 11/24/19 23:19 Milk Of Magnesia PO Q4H PRN Constipation Metoprolol Tartrate 25 mg 11/25/19 10:00 11/26/19 09:24 Metoprolol PO 25 mg BID JOHN Administration Metoprolol Tartrate 50 mg 11/25/19 10:00 11/26/19 09:22 Metoprolol PO 50 mg BID JOHN Administration Minoxidil 2.5 mg 11/25/19 11:00 11/26/19 09:22 Loniten PO 2.5 mg QDAY JOHN Administration Ondansetron HCl 4 mg 11/24/19 23:19 Zofran IV Q8H PRN Nausea And Vomiting Sevelamer Carbonate 800 mg 11/25/19 08:00 11/26/19 11:30 Renvela PO 800 mg TIDWM JOHN Administration Sodium Chloride 10 ml 11/25/19 10:00 11/26/19 09:25 Sodium Chloride Flush Syringe 10 Ml IV 10 ml BID JOHN Administration Sodium Chloride 10 ml 11/24/19 23:19 Sodium Chloride Flush Syringe 10 Ml IV PRN PRN LINE FLUSH Warfarin Sodium 2.5 mg 11/25/19 17:00 11/25/19 16:47 Coumadin PO 2.5 mg DAILY@1700 JOHN Administration Protocol Nutrition/Malnutrition Assess - Dietary Evaluation Nutrition/Malnutrition Findings: Nutrition Notes Start: 11/26/19 11:55 Freq: Status: Active Protocol: Document 11/26/19 11:55 LP (Rec: 11/26/19 12:02 LP [id number]) Nutrition Notes Need for Assessment generated from: MD Order Initial or Follow up Assessment Current Diagnosis CKD (stage V CKD),COPD, Diabetes,Hypertension,Heart Failure,Stroke Other Pertinent Diagnosis on HD Current Diet Cardiac/Consistent CHO Labs/Tests Reviewed Pertinent Medications Coumadin Height 6 ft Weight 45.8 kg [place] Body Weight (kg) 80.90 BMI 13.6 Intake Prior to Admission Excellent Weight Status Underweight Subjective/Other Information Screen for new DM and skin risk (13). No wounds noted. Pt states eating well. Consumed 100% of breakfast. Wt has been stable for the past 5 years. Pt states wanting Nepro shake and has no other needs at this time. Pt states being on Coumadin and aware of diet. Burn Absent Trauma Absent GI Symptoms None Current % PO Good (75-100%) Minimum of two criteria Yes Body Fat Depletion Mild depletion (non-severe) Muscle Mass Mild Depletion (non-severe) #1 Nutrition Diagnosis Malnutrition Etiology Chronic illness As Evidenced by Signs and Symptoms Observed fat and muscle loss Is patient on ventilator? No Is Patient Ambulatory and/or Out of Bed No REE-([facility]-confined to bed) 1601.928 Kcal/Kg value to use for calculation 40 Approximate Energy Requirements Using 1832 kcal/Kg Calculation Used for Recommendations Kcal/kg Additional Notes Protein needs are >55g ( >1.2g /kg) Fluid needs are 1ml/kcal Nutrition Intervention Change Diet Order: Continue Add Supplement/Snack (indicate name/kcal Nepro Vanilla or [place] BID /protein ) Provides kCal: 950 Provides Protein (gm) 38 Goal #1 Meet at least 80% of kcal and protein needs Anticipated Discharge Needs: Renal/ cardiac/consistent CHO diet Follow-Up By: 11/30/19 Additional Comments Follow for stable intakes
--- NOTE | 2019-11-26 13:41 | Progress Note ---
Subjective Date of service: 11/26/19 Interval history: arterial studies reviewed patient with some evidence of steal given patient lack of neurological symptoms to the left arm, unsure patient to benefit from surgical intervention patient with generalized muscle wasting including the left arm which is likely related to malnutrition patient can follow-up as an outpatient so we can follow him closely will sign-off at this time, please call for any questions/concerns Objective - Constitutional Vitals: Vital Signs - 12hr 11/26/19 11/26/19 11/26/19 05:36 07:42 09:22 Temperature 96.9 F L 98.8 F Pulse Rate 76 78 78 Respiratory 20 18 Rate Blood Pressure 137/84 137/83 137/83 O2 Sat by Pulse 99 99 Oximetry 11/26/19 11/26/19 09:23 09:24 Temperature Pulse Rate 78 78 Respiratory Rate Blood Pressure 137/83 137/83 O2 Sat by Pulse Oximetry - Labs CBC & Chem 7: 11/25/19 07:20 11/25/19 07:20 Labs: Abnormal lab results 11/25/19 11/25/19 11/26/19 Range/Units 16:34 21:29 07:55 POC Glucose 109 H 108 H 157 H (70-105) 11/26/19 Range/Units 11:24 POC Glucose 53 L (70-105) Medications & Allergies - Medications Allergies/Adverse Reactions: Allergies No Known Allergies Allergy (Verified 09/27/19 03:07) Home Medications: Home Medications Medication Instructions Recorded Confirmed Last Taken Type Metoprolol Tartrate 75 mg PO BID 11/24/19 11/24/19 Unknown History Sevelamer Carbonate [Renvela] 800 mg PO TIDWM 11/24/19 11/24/19 Unknown History Warfarin [Coumadin] 1 mg PO QHS 11/24/19 11/24/19 Unknown History amLODIPine [Norvasc] 10 mg PO DAILY 11/24/19 11/24/19 Unknown History Active Medications: Generic Name Dose Route Start Last Admin Trade Name Freq PRN Reason Stop Dose Admin Acetaminophen 650 mg 11/24/19 23:19 11/25/19 16:46 Tylenol PO 650 mg Q4H PRN Administration Pain MILD(1-3)/Fever >100.5/FRAZIER Amlodipine Besylate 10 mg 11/25/19 10:00 01/13/20 09:23 Amlodipine PO 10 mg DAILY JOHN Administration Dextrose 0 ml 11/24/19 23:19 D50w (25gm) Syringe IV Q30MIN PRN Hypoglycemia Protocol Sodium Chloride 100 mls @ 999 mls/hr 11/25/19 19:24 Nacl 0.9% IV CARLOS A PRN Hypotension Insulin Human Lispro 0 unit 11/25/19 07:30 11/26/19 11:43 Humalog SUB-Q Not Given ACHS JOHN Protocol Magnesium Hydroxide 30 ml 11/24/19 23:19 Milk Of Magnesia PO Q4H PRN Constipation Metoprolol Tartrate 25 mg 11/25/19 10:00 11/26/19 09:24 Metoprolol PO 25 mg BID JOHN Administration Metoprolol Tartrate 50 mg 11/25/19 10:00 11/26/19 09:22 Metoprolol PO 50 mg BID JOHN Administration Minoxidil 2.5 mg 11/25/19 11:00 11/26/19 09:22 Loniten PO 2.5 mg QDAY JOHN Administration Ondansetron HCl 4 mg 11/24/19 23:19 Zofran IV Q8H PRN Nausea And Vomiting Sevelamer Carbonate 800 mg 11/25/19 08:00 11/26/19 11:30 Renvela PO 800 mg TIDWM JOHN Administration Sodium Chloride 10 ml 11/25/19 10:00 11/26/19 09:25 Sodium Chloride Flush Syringe 10 Ml IV 10 ml BID JOHN Administration Sodium Chloride 10 ml 11/24/19 23:19 Sodium Chloride Flush Syringe 10 Ml IV PRN PRN LINE FLUSH Warfarin Sodium 2.5 mg 11/25/19 17:00 11/25/19 16:47 Coumadin PO 2.5 mg DAILY@1700 JOHN Administration Protocol
--- NOTE | 2019-11-26 14:00 | Vascular Lab Report ---
Arterial Doppler of the left upper extremity INDICATION: Left upper extremity AV fistula. Occasional numbness and weakness in the left arm. We are asked to evaluate for steal syndrome FINDINGS: Real-time color and spectral Doppler techniques utilized. The velocity in the left radial artery with AP fistula compression is 70 cm/s and is 21 cm/s without AV fistula compression. Some component of steal. Velocity in the left subclavian artery is 128 cm/s. Velocity in the left axillary artery is 282 cm/s. Velocity in the right brachial artery is 163 cm/s p roximally, 231 cm/s in the mid artery and 259 cm/s distally. Velocity in the proximal right ulnar art yang is 103 cm/s. Velocity in the distal ulnar artery is 38 cm/s. IMPRESSION: There is increased velocity in the left radial artery with a deficient compression compar ed to velocity without compression suggesting some component of steal. Without AV fistula compression , there is flow into the hand in both the ulnar and radial arteries, however. Signer Name: Corky Berman MD Signed: 11/26/2019 11:56 AM Workstation Name: [id number]
[2019-11-26] MEDS: WARFARIN 2.5 MG TAB PO SCH (16:59)
--- NOTE | 2019-11-26 20:55 | Magnetic Resonance Report ---
Nonenhanced and contrast-enhanced MR scan of the cervical spine: INDICATION / CLINICAL INFORMATION: seizure. TECHNIQUE: Multiplanar, multisequence MR images of the brain were noncontrast MRI brain normal brain MR obtained . COMPARISON: CT scan of the head from 11/24/2019 FINDINGS: The MRI scan due to motion related artifacts BRAIN / INTRACRANIAL CONTENTS significant volume loss is seen in the right temporal lobe with compens atory enlargement of the right temporal horn. Increased signal intensity is seen in the temporal lobe white matter extending up to subcortical white matter. Compensatory enlargement of sylvian fissure i s also seen on the right side. : This would exclude acute/subacute ischemia; normal gradient echo images would exclude hemorrhagic a nd calcified lesions. Brainstem and cerebellar lumbar normal. Left cerebral hemisphere, few scattered the deep hemispheric white matter lesions are seen. CRANIOCERVICAL JUNCTION: No significant abnormality. VASCULAR FLOW-VOIDS: No significant abnormality. ORBITS: No significant abnormality of visualized orbits. SINUSES / MASTOIDS: No significant abnormality of visualized sinuses and mastoid air cells. ADDITIONAL FINDINGS: Spondylotic changes in the upper cervical spine IMPRESSION: No acute/subacute infarction Severe volume loss in the right temporal lobe with compensatory enlargement of right temporal horn Left temporal lobe is normal Signer Name: Jose Alberto Preston MD Signed: 11/26/2019 8:50 PM Workstation Name: [id number]
[2019-11-26] MEDS: ACETAMINOPHEN 325 MG TAB PO PRN (22:27)
--- NOTE | 2019-11-26 22:56 | Progress Note ---
Assessment and Plan # End-stage renal disease: will continue HD // or prn, due tomorrow - daily labs - renally dose meds - avoid nephrotoxins - appreciate vascular input regarding AVF # Altered mental status: improved # Anemia: last hemoglobin 10.2 at goal, no ESAs needed # HTN: UF as tolerated # Secondary hyperparathyroidism: Goal phosphorus <5. Continue to monitor # Hypoglycemia: improved Thank you for the consultation. Subjective Date of service: 11/26/19 Interval history: No acute events noted. Tolerated last HD session. No concerns today. No dyspnea. No chest pain. Objective - Exam Narrative Exam: General: No acute distress HEENT: NC/AT Neck: Supple Chest: Clear to auscultation Heart: Regular rate and rhythm, S1-S2 Abdomen: Soft nontender Extremity: no edema Right below-knee amputation Neurological: Alert, awake, grossly nonfocal examination Back: Nontender thoracolumbar spine Musculoskeletal: No joint effusion noted Skin: No petechial rash/noted - Vital Signs Vital signs: Vital Signs - 12hr 11/26/19 11/26/19 11/26/19 11:00 20:00 22:26 Temperature 98.0 F Pulse Rate 73 73 Respiratory 18 18 Rate Blood Pressure 132/86 Blood Pressure 132/86 [Right] O2 Sat by Pulse 99 91 Oximetry 11/26/19 22:27 Temperature Pulse Rate 73 Respiratory 20 Rate Blood Pressure 132/86 Blood Pressure [Right] O2 Sat by Pulse Oximetry - Lab 11/25/19 07:20 11/25/19 07:20 Most recent lab results Calcium 8.2 mg/dL (8.4-10.2) L 11/25/19 07:20 Medications & Allergies - Medications Allergies/Adverse Reactions: Allergies No Known Allergies Allergy (Verified 09/27/19 03:07) Home Medications: Home Medications Medication Instructions Recorded Confirmed Last Taken Type Metoprolol Tartrate 75 mg PO BID 11/24/19 11/24/19 Unknown History Sevelamer Carbonate [Renvela] 800 mg PO TIDWM 11/24/19 11/24/19 Unknown History Warfarin [Coumadin] 1 mg PO QHS 11/24/19 11/24/19 Unknown History amLODIPine [Norvasc] 10 mg PO DAILY 11/24/19 11/24/19 Unknown History Active Medications: Generic Name Dose Route Start Last Admin Trade Name Freq PRN Reason Stop Dose Admin Acetaminophen 650 mg 11/24/19 23:19 11/26/19 22:27 Tylenol PO 650 mg Q4H PRN Administration Pain MILD(1-3)/Fever >100.5/FRAZIER Amlodipine Besylate 10 mg 11/25/19 10:00 11/26/19 09:23 Amlodipine PO 10 mg DAILY JOHN Administration Dextrose 0 ml 11/24/19 23:19 D50w (25gm) Syringe IV Q30MIN PRN Hypoglycemia Protocol Sodium Chloride 100 mls @ 999 mls/hr 11/25/19 19:24 Nacl 0.9% IV CARLOS A PRN Hypotension Insulin Human Lispro 0 unit 11/25/19 07:30 11/26/19 22:31 Humalog SUB-Q Not Given ACHS [facility] Protocol Magnesium Hydroxide 30 ml 11/24/19 23:19 Milk Of Magnesia PO Q4H PRN Constipation Metoprolol Tartrate 25 mg 11/25/19 10:00 11/26/19 22:27 Metoprolol PO 25 mg BID JOHN Administration Metoprolol Tartrate 50 mg 11/25/19 10:00 11/26/19 22:26 Metoprolol PO 50 mg BID JOHN Administration Minoxidil 2.5 mg 11/25/19 11:00 11/26/19 09:22 Loniten PO 2.5 mg QDAY JOHN Administration Ondansetron HCl 4 mg 11/24/19 23:19 Zofran IV Q8H PRN Nausea And Vomiting Sevelamer Carbonate 800 mg 11/25/19 08:00 11/26/19 16:59 Renvela PO 800 mg TIDWM JOHN Administration Sodium Chloride 10 ml 11/25/19 10:00 11/26/19 22:31 Sodium Chloride Flush Syringe 10 Ml IV 10 ml BID JOHN Administration Sodium Chloride 10 ml 11/24/19 23:19 Sodium Chloride Flush Syringe 10 Ml IV PRN PRN LINE FLUSH Warfarin Sodium 2.5 mg 11/25/19 17:00 11/26/19 16:59 Coumadin PO 2.5 mg DAILY@1700 JOHN Administration Protocol
[2019-11-27] MEDS: INSULIN LISPRO 100 UNIT/ML SUB-Q SCH ×3 (09:07→19:46)
[2019-11-27] MEDS: SEVELAMER CARBONATE 800 MG TAB PO SCH ×2 (09:07→19:46)
[2019-11-27 09:46] LABS: INR 0.98 (0.87-1.13)
[2019-11-27] MEDS: METOPROLOL TARTRATE 50 MG TAB PO SCH (10:22)
[2019-11-27] MEDS: amLODIPine 10 MG TAB PO SCH (10:23)
[2019-11-27] MEDS: MINOXIDIL 2.5 MG TAB PO SCH (10:23)
[2019-11-27] MEDS: METOPROLOL TARTRATE 25 MG TAB PO SCH (10:23)
[2019-11-27 10:32] LABS: Calcium 8.2 mg/dL (8.4-10.2)
--- NOTE | 2019-11-27 14:04 | Progress Note ---
Assessment and Plan CE elevation appears c/w NSTEMI type II. Pt denies any occurrence of chest pain, SOB, palpitations, n/v, diaphoresis, dizziness or syncope. Echo done 08/2019 showed EF 50-55%, impaired relaxation, increased RA pressure, left pleural effusion. Currently stable cardiac status. can consider stress testing once medically stabilized as OP. nothing further to add from cardiac perspective at this time. Will sign off. Recommend pt follow up in our office with Dr. Richard Mitchell within 1-2 weeks of discharge ([phone]). The patient has been seen in conjunction with Dr. Richard Mitchell who agrees with the assessment and plan of care. - Patient Problems (1) Altered mental status Current Visit: Yes Status: Acute (2) Subclavian steal syndrome Current Visit: Yes Status: Suspected (3) ESRD on dialysis Current Visit: Yes Status: Chronic (4) NSTEMI (non-ST elevated myocardial infarction) Current Visit: Yes Status: Acute Plan to address problem: suspect type II (5) Hypertension Current Visit: Yes Status: Chronic Qualifiers: Hypertension type: essential hypertension Qualified Code(s): I10 - Essential (primary) hypertension (6) Diabetes Current Visit: Yes Status: Chronic (7) PVD (peripheral vascular disease) Current Visit: Yes Status: Chronic (8) History of seizure Current Visit: Yes Status: Chronic (9) COPD (chronic obstructive pulmonary disease) Current Visit: Yes Status: Chronic (10) GERD (gastroesophageal reflux disease) Current Visit: Yes Status: Chronic Subjective Date of service: 11/27/19 Principal diagnosis: AMS Interval history: pt resting in bed, no current complaints. in SR on tele. Objective Last Vital Signs Temp 98.0 F 11/27/19 12:15 Pulse 71 11/27/19 13:30 Resp 18 11/27/19 12:15 BP 101/66 11/27/19 13:30 Pulse Ox 99 11/27/19 07:56 - Physical Examination General: No Apparent Distress HEENT: Positive: PERRL, Normocephaly, Mucus Membranes Moist Neck: Positive: neck supple, trachea midline Cardiac: Positive: Reg Rate and Rhythm, S1/S2 Lungs: Positive: Decreased Breath Sounds Neuro: Positive: Grossly Intact Abdomen: Negative: Tender Skin: Negative: Rash Musculoskeletal: No Pain Extremities: Absent: edema - Labs and Meds Coagulation 11/27/19 Range/Units 08:29 PT 13.1 (12.2-14.9) Sec. INR 0.98 (0.87-1.13) Comprehensive Metabolic Panel 11/27/19 Range/Units 08:29 Sodium 143 D (137-145) mmol/L Potassium 4.8 (3.6-5.0) mmol/L Chloride 100.8 (98-107) mmol/L Carbon Dioxide 19 L D (22-30) mmol/L BUN 58 H (9-20) mg/dL Creatinine 9.6 H (0.8-1.5) mg/dL Glucose 103 H (75-100) mg/dL Calcium 8.2 L (8.4-10.2) mg/dL - Imaging and Cardiology EKG: report reviewed, image reviewed Echo: report reviewed (08/2019 showed EF 50-55%, impaired relaxation, increased RA pressure, left pleural effusion.) - EKG Sinus rhythms and dysrhythmias: sinus rhythm
--- NOTE | 2019-11-27 15:39 | Discharge Summary ---
Providers - Providers Date of Admission: 11/24/19 22:13 Date of discharge: 11/27/19 Attending physician: AMBROSE LENZ 11/24/19 17:46 Consult to Physician [CONS] Stat Comment: Consulting Provider: KAMALA REVELES Physician Instructions: Reason For Exam: end-stage renal disease needing dialysis 11/25/19 05:37 Consult to Wound/ET Nurse [CONS] Routine Reason For Exam: wound eval 11/25/19 10:07 Consult to Physician [CONS] Routine Comment: Consulting Provider: RIVAS FERGUSON Physician Instructions: Reason For Exam: elevated trop Primary care physician: [facility] [employer] [facility] Hospitalization Condition: Fair Disposition: [id number]/[place]-06 HOME UNDER HOME HLTH Exam - Constitutional Vitals: Temp Pulse Resp BP Pulse Ox 98.0 F 71 18 96/61 99 11/27/19 12:15 11/27/19 14:45 11/27/19 12:15 11/27/19 14:45 11/27/19 07:56 Plan Activity: no restrictions Diet: low fat, low cholesterol, low salt, renal Plan of Treatment: 1.Follow up with PCP in 1 week. 2.Follow up with Dr. Rivas Ferguson in 1-2 weeks. 3.Follow up with Dr. Gregorio Jackson in 1 week 4.Continue routine hemodialysis as scheduled. 5.Check Coumadin on 11/29/19 with PCP 6.Coumadin 4mg po daily, dose to be adjusted as per PCP to keep INR therapeutic. Follow up with: ANIKET SIM MD [Primary Care Provider] - 3-5 Days GREGORIO JACKSON MD [Staff Physician] - 14 Days Forms: Warfarin Discharge Instruction Prescriptions: Warfarin [Coumadin] 4 mg PO QDAY #30 tablet
--- NOTE | 2019-11-27 16:54 | Progress Note ---
Assessment and Plan # End-stage renal disease: will continue HD // or prn, due today and seen on HD, doing well - daily labs - renally dose meds - avoid nephrotoxins - appreciate vascular input regarding AVF - ok for discharge from renal perspective # Altered mental status: improved # Anemia: last hemoglobin 10.2 at goal, no ESAs needed # HTN: UF as tolerated # Secondary hyperparathyroidism: Goal phosphorus <5. Continue to monitor; potential side effects from Renvela (diarrhea), will try Phoslo for now although all binders likely with similar side effects # Hypoglycemia: improved Thank you for the consultation. Subjective Date of service: 11/27/19 Principal diagnosis: AMS Interval history: No acute events noted. Seen on HD today. No concerns today. No dyspnea. No chest pain. No cramping or dizziness. Does note diarrhea, thinks is related to Renvela. Objective - Exam Narrative Exam: General: No acute distress HEENT: NC/AT Neck: Supple Chest: Clear to auscultation Heart: Regular rate and rhythm, S1-S2 Abdomen: Soft nontender Extremity: no edema Right below-knee amputation Neurological: Alert, awake, grossly nonfocal examination Back: Nontender thoracolumbar spine Musculoskeletal: No joint effusion noted Skin: No petechial rash/noted - Vital Signs Vital signs: Vital Signs - 12hr 11/27/19 11/27/19 11/27/19 07:00 07:56 10:22 Temperature 98.0 F Pulse Rate 69 70 70 Pulse Rate [ From Monitor] Respiratory 18 Rate Blood Pressure 131/80 131/80 O2 Sat by Pulse 99 Oximetry 11/27/19 11/27/19 11/27/19 10:23 11:00 12:15 Temperature 98.0 F Pulse Rate 70 67 Pulse Rate [ 72 From Monitor] Respiratory 20 18 Rate Blood Pressure 131/80 137/75 O2 Sat by Pulse 95 Oximetry 11/27/19 11/27/19 11/27/19 12:30 12:45 13:00 Temperature Pulse Rate 68 70 70 Pulse Rate [ From Monitor] Respiratory Rate Blood Pressure 90/51 103/61 105/69 O2 Sat by Pulse Oximetry 11/27/19 11/27/19 11/27/19 13:15 13:30 13:45 Temperature Pulse Rate 70 71 71 Pulse Rate [ From Monitor] Respiratory Rate Blood Pressure 104/65 101/66 99/60 O2 Sat by Pulse Oximetry 11/27/19 11/27/19 11/27/19 14:00 14:15 14:31 Temperature Pulse Rate 71 73 71 Pulse Rate [ From Monitor] Respiratory Rate Blood Pressure 97/64 104/60 100/62 O2 Sat by Pulse Oximetry 11/27/19 11/27/19 14:45 15:00 Temperature Pulse Rate 71 71 Pulse Rate [ From Monitor] Respiratory Rate Blood Pressure 96/61 O2 Sat by Pulse Oximetry Seen on HD. Qb 350ml/mini via AVF, UF goal 1.5L - Lab 11/25/19 07:20 11/27/19 08:29 Most recent lab results Calcium 8.2 mg/dL (8.4-10.2) L 11/27/19 08:29 Medications & Allergies - Medications Allergies/Adverse Reactions: Allergies No Known Allergies Allergy (Verified 09/27/19 03:07) Home Medications: Home Medications Medication Instructions Recorded Confirmed Last Taken Type Metoprolol Tartrate 75 mg PO BID 11/24/19 11/24/19 Unknown History Sevelamer Carbonate [Renvela] 800 mg PO TIDWM 11/24/19 11/24/19 Unknown History amLODIPine 10 mg PO DAILY 11/24/19 11/24/19 Unknown History Warfarin [Coumadin] 4 mg PO QDAY #30 tablet 11/27/19 Unknown Rx Active Medications: Generic Name Dose Route Start Last Admin Trade Name Freq PRN Reason Stop Dose Admin Acetaminophen 650 mg 11/24/19 23:19 11/26/19 22:27 Tylenol PO 650 mg Q4H PRN Administration Pain MILD(1-3)/Fever >100.5/FRAZIER Amlodipine Besylate 10 mg 11/25/19 10:00 11/27/19 10:23 Amlodipine PO 10 mg DAILY JOHN Administration Dextrose 0 ml 11/24/19 23:19 D50w (25gm) Syringe IV Q30MIN PRN Hypoglycemia Protocol Sodium Chloride 100 mls @ 999 mls/hr 11/25/19 19:24 Nacl 0.9% IV CARLOS A PRN Hypotension Insulin Human Lispro 0 unit 11/25/19 07:30 11/27/19 09:07 Humalog SUB-Q Not Given ACHS JOHN Protocol Magnesium Hydroxide 30 ml 11/24/19 23:19 Milk Of Magnesia PO Q4H PRN Constipation Metoprolol Tartrate 25 mg 11/25/19 10:00 11/27/19 10:23 Metoprolol PO 25 mg BID JOHN Administration Metoprolol Tartrate 50 mg 11/25/19 10:00 11/27/19 10:22 Metoprolol PO 50 mg BID JOHN Administration Minoxidil 2.5 mg 11/25/19 11:00 11/27/19 10:23 Loniten PO 2.5 mg QDAY JOHN Administration Ondansetron HCl 4 mg 11/24/19 23:19 Zofran IV Q8H PRN Nausea And Vomiting Sevelamer Carbonate 800 mg 11/25/19 08:00 11/27/19 09:07 Renvela PO 800 mg TIDWM JOHN Administration Sodium Chloride 10 ml 11/25/19 10:00 11/27/19 10:24 Sodium Chloride Flush Syringe 10 Ml IV 10 ml BID JOHN Administration Sodium Chloride 10 ml 11/24/19 23:19 Sodium Chloride Flush Syringe 10 Ml IV PRN PRN LINE FLUSH Warfarin Sodium 4 mg 11/27/19 17:00 Coumadin PO DAILY@1700 [facility] Protocol
[2019-11-27] MEDS ORDERED: WARFARIN 2 MG TAB PO SCH (17:00)
[2019-11-27 17:27] VITALS: BP 102/70
[2019-11-27] MEDS ORDERED: CALCIUM ACETATE 667 MG CAP PO SCH (20:00)
[2019-11-27] MEDS ORDERED: SODIUM CHLORIDE*PRIMING MACHINE ONLY FOR DIALYSIS MC ONE (20:29)
== END 2019-11-27 19:36 | disposition home health service (06) | DRG 70 ==
LOC: ED 15:36 → 4A 22:13 → OBSVTOIN 22:13
PROVIDERS: ADMIT Internal Medicine Geriatric Medicine; ATTEND Internal Medicine
PROC: 5A1D70Z Performance of Urinary Filtration, Intermittent, Less than 6 Hours Per Day (ICD-10-PCS; principal; 2019-11-25)
PROC: 5A1D70Z Performance of Urinary Filtration, Intermittent, Less than 6 Hours Per Day (ICD-10-PCS; 2019-11-27)
DX: G93.41 Metabolic encephalopathy (principal); I21.A1 Myocardial infarction type 2; N18.6 End stage renal disease; G45.8 Other transient cerebral ischemic attacks and related syndromes; E87.2 Acidosis; I13.2 Hypertensive heart and chronic kidney disease with heart failure and with stage 5 chronic kidney disease, or end stage renal disease; N25.81 Secondary hyperparathyroidism of renal origin; E87.5 Hyperkalemia; E11.22 Type 2 diabetes mellitus with diabetic chronic kidney disease; J44.9 Chronic obstructive pulmonary disease, unspecified; G40.909 Epilepsy, unspecified, not intractable, without status epilepticus; E11.51 Type 2 diabetes mellitus with diabetic peripheral angiopathy without gangrene; K21.9 Gastro-esophageal reflux disease without esophagitis; E11.649 Type 2 diabetes mellitus with hypoglycemia without coma; Z89.511 Acquired absence of right leg below knee; Z86.73 Personal history of transient ischemic attack (TIA), and cerebral infarction without residual deficits; Z99.2 Dependence on renal dialysis
CPT/HCPCS: 36415; 70450; 70496; 70498; 70551; 80048; 80061; 80074; 82962; 84484; 85025; 85610; 85670; 85730; 87116; 93005; 93010; G0378; J1815; J2060; J7030; Q9967